=== PATIENT | female | born 1990 | race Caucasian/White ===

== ENCOUNTER 2016-07-11 18:54 | Emergency (ER) | payer BC, OTHER ==
[2016-07-11 19:06] VITALS: BP 137/80; PULSE 80; RESP 20; TEMP 98.6
--- NOTE | 2016-07-11 20:03 | XR ---
EXAMINATION TYPE: XR chest 2V DATE OF EXAM: 07/11/2016 7:58 PM COMPARISON: Prior chest x-ray January HISTORY: Chest pain TECHNIQUE: Frontal and lateral views of the chest are obtained. FINDINGS: There is no focal air space opacity, pleural effusion, or pneumothorax seen. The cardiac silhouette size is within normal limits. The osseous structures are intact. IMPRESSION: No acute cardiopulmonary process.
--- NOTE | 2016-07-11 20:04 | ED ---
Chest Pain HPI - General Chief Complaint: Chest Pain Stated Complaint: chest pain Time Seen by Provider: 07/11/16 19:22 Source: patient, RN notes reviewed, old records reviewed Mode of arrival: wheelchair Limitations: no limitations - History of Present Illness Initial Comments: This is a 25-year-old female with chief complaint of right-sided chest pain. Patient reports that she had an episode chest pain yesterday at work and admits to subsided after she took an aspirin. Patient states that this occurred again today while at work. She reports that the pain is worse with pressure over her chest. She denies any shortness breath, dizziness or nausea or vomiting. She denies any diaphoresis. She states that she's had this happened before and was diagnosed with costochondritis. Patient reports the pain is worse when she tries to take a deep breath and feels or muscle stretch over her chest. She denies any specific injury. 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 - Related Data Previous Rx's Medication Instructions Recorded Ibuprofen [Motrin] 800 mg PO Q6HR PRN #20 tab 07/11/16 Allergies Allergy/AdvReac Type Severity Reaction Status Date / Time No Known Allergies Allergy Verified 07/11/16 19:24 Review of Systems ROS Statement: Those systems with pertinent positive or pertinent negative responses have been documented in the HPI. ROS Other: All systems not noted in ROS Statement are negative. EKG Findings - EKG Comments: EKG Findings:: EKG shows normal sinus rhythm. Ventricular rate 69 bpm. NC interval 170 ms. QRS duration 80 ms. QT QTc is 4/10 at 450 ms. No evidence of ST elevation or T-wave inversion. Past Medical History Past Medical History: No Reported History History of Any Multi-Drug Resistant Organisms: None Reported Past Surgical History: Orthopedic Surgery Additional Past Surgical History / Comment(s): rt knee orthoscopic Past Psychological History: No Psychological Hx Reported Smoking Status: Current every day smoker Past Alcohol Use History: Occasional Past Drug Use History: Marijuana General Exam - General Exam Comments Initial Comments: This is a well-appearing 25-year-old female. No acute distress. Limitations: no limitations General appearance: alert, in no apparent distress Head exam: Present: atraumatic, normocephalic, normal inspection Eye exam: Present: normal appearance, PERRL, EOMI. Absent: scleral icterus, conjunctival injection, periorbital swelling ENT exam: Present: normal exam, mucous membranes moist Neck exam: Present: normal inspection. Absent: tenderness, meningismus, lymphadenopathy Respiratory exam: Present: normal lung sounds bilaterally. Absent: respiratory distress, wheezes, rales, rhonchi, stridor Cardiovascular Exam: Present: regular rate, normal rhythm, normal heart sounds, other (Patient is tender to palpation over the right breast and pectoralis muscle.). Absent: systolic murmur, diastolic murmur, rubs, gallop, clicks GI/Abdominal exam: Present: soft, normal bowel sounds. Absent: distended, tenderness, guarding, rebound, rigid Extremities exam: Present: normal inspection, full ROM, normal capillary refill. Absent: tenderness, pedal edema, joint swelling, calf tenderness Back exam: Present: normal inspection Neurological exam: Present: alert, oriented X3, CN II-XII intact Psychiatric exam: Present: normal affect, normal mood Skin exam: Present: warm, dry, intact, normal color. Absent: rash Course Vital Signs 07/11/16 19:04 Temperature 98.6 F Pulse Rate 80 Respiratory 20 Rate Blood Pressure 137/80 O2 Sat by Pulse 98 Oximetry Chest Pain MDM - MDM This is a 25-year-old female complaining of 1 day of chest pain. Patient is tender to the right side of the chest to palpation. Likely costochondritis or muscle strain. Patient's chest x-ray and EKG reviewed. EKG as needed for any acute process. Chest x-ray also was negative. Patient will be discharged home with a template injuries. Discussed close follow-up with her primary care provider. Patient chest x-rays negative for any acute process. Patient is unlikely to have any cardiopulmonary reason for chest pain. Patient has no fever or chills. No cough, lungs are clear. No murmurs. Patient is tender on thechest wall. Will be discharged with antiinflammatory. Return paramteres discussed, and patient will follow up with PCP. Disposition Clinical Impression: Right-sided chest wall pain Disposition: HOME SELF-CARE Condition: Good Instructions: Costochondritis (ED) Prescriptions: Ibuprofen [Motrin] 800 mg PO Q6HR PRN #20 tab PRN Reason: Pain Referrals: Rossi Campos MD [STAFF PHYSICIAN] - 1-2 days Time of Disposition: :03
== END 2016-07-11 20:11 | disposition home or self-care (01) ==
LOC: EC 18:54
DX: R07.89 Other chest pain (principal); F17.200 Nicotine dependence, unspecified, uncomplicated
CPT/HCPCS: 71020; 93005; 99285

== ENCOUNTER → 2017-06-09 | Outpatient (CLI) | payer BC, OTHER | END | disposition home or self-care (01) | LOC: LABWHC1 10:49 | PROVIDERS: ATTEND Family Medicine | DX: J11.1 Influenza due to unidentified influenza virus with other respiratory manifestations (principal) | CPT/HCPCS: 87502 ==

== ENCOUNTER 2017-10-21 21:47 | Emergency (ER) | payer OTHER ==
[2017-10-21 21:57] VITALS: PULSE 86; RESP 18
[2017-10-21] MEDS ORDERED: KETOROLAC 30 MG/ML 1 ML VIAL IM STA (22:24)
[2017-10-21] MEDS ORDERED: ORPHENADRINE 30 MG/ML 2 ML VIAL IM STA (22:24)
--- NOTE | 2017-10-21 22:51 | ED ---
General Adult HPI - General Chief complaint: Back Pain/Injury Stated complaint: Back Pain Time Seen by Provider: 10/21/17 22:01 Source: patient, family, RN notes reviewed Mode of arrival: ambulatory Limitations: no limitations - History of Present Illness Initial comments: 26-year-old female presents to the emergency department for a chief complaint of right sided back pain 4 days. Patient states she lifted up a 5 gallon bucket at work and felt a strain on the right side of her back. Patient states that since that time she has had a spasm in her right lower back as well as a shooting pain down her right leg to her right knee. Patient states pain is worsened with movement. Patient denies any bladder or bowel changes. Patient denies any saddle anesthesia. Patient denies any weakness in the lower extremities. Patient denies any history of cancer, IV drug abuse, fevers, chronic steroid use. Patient has no other complaints at this time including shortness of breath, chest pain, abdominal pain, nausea or vomiting, headache, or visual changes. - Related Data Previous Rx's Medication Instructions Recorded Ibuprofen [Motrin] 800 mg PO Q6HR PRN #20 tab 07/11/16 Cyclobenzaprine [Flexeril] 5 mg PO TID #12 tablet 10/21/17 Ibuprofen [Motrin] 600 mg PO Q8HR PRN #20 tab 10/21/17 predniSONE 50 mg PO DAILY #5 tablet 10/21/17 Allergies Allergy/AdvReac Type Severity Reaction Status Date / Time No Known Allergies Allergy Verified 10/21/17 21:57 Review of Systems ROS Statement: Those systems with pertinent positive or pertinent negative responses have been documented in the HPI. ROS Other: All systems not noted in ROS Statement are negative. Past Medical History Past Medical History: No Reported History Additional Past Medical History / Comment(s): back pain History of Any Multi-Drug Resistant Organisms: None Reported Past Surgical History: Orthopedic Surgery Additional Past Surgical History / Comment(s): rt knee orthoscopic Past Psychological History: No Psychological Hx Reported Smoking Status: Never smoker Past Alcohol Use History: Occasional Past Drug Use History: Marijuana General Exam Limitations: no limitations General appearance: alert, in no apparent distress Head exam: Present: atraumatic, normocephalic, normal inspection Eye exam: Present: normal appearance, PERRL, EOMI. Absent: scleral icterus, conjunctival injection, nystagmus, periorbital swelling, periorbital tenderness ENT exam: Present: normal exam, mucous membranes moist Neck exam: Present: normal inspection, full ROM. Absent: tenderness, meningismus, lymphadenopathy Respiratory exam: Present: normal lung sounds bilaterally. Absent: respiratory distress, wheezes, rales, rhonchi, stridor Cardiovascular Exam: Present: regular rate, normal rhythm, normal heart sounds. Absent: systolic murmur, diastolic murmur, rubs, gallop, clicks Extremities exam: Present: full ROM (Patient has full range motion of the right hip knee ankle), tenderness (Patient does have very mild tenderness to the right low back and sciatic notch), normal capillary refill (Capillary refill less than 2 seconds and pedal pulse 2+ in the right lower extremity), other ( Sensation intact in the right lower extremity). Absent: pedal edema, joint swelling, calf tenderness (No tenderness in the calf, negative Homans sign) Back exam: Present: paraspinal tenderness (Patient has mild right sided low back tenderness in sciatic notch tenderness). Absent: vertebral tenderness (No vertebral tenderness noted) Neurological exam: Present: alert, oriented X3, CN II-XII intact, reflexes normal (Reflexes patellar 2+. No hyperreflexia, no myoclonus) Psychiatric exam: Present: normal affect, normal mood Course Vital Signs 10/21/17 21:55 Temperature 98.7 F Pulse Rate 86 Respiratory 18 Rate Blood Pressure 136/86 O2 Sat by Pulse 96 Oximetry Medical Decision Making - Medical Decision Making 26-year-old female presents to the emergency department for a chief complaint of sciatic pain 4 days. Patient was lifting something at work when she felt a spasm on the right side of her back. Since that time she has noticed a sharp shooting pain down the right leg to the right knee. Patient denies weakness. Patient denies any red flag symptoms which were documented in HPI. On exam patient has some mild right low back tenderness as well as right sciatic notch tenderness. No midline tenderness. No other injuries. Neurovascular intact in the right lower extremity At this time x-ray is not warranted and will likely not show any abnormalities. Patient will be treated with Toradol and Norflex. She will be written a prescription for steroids. Patient denies any chance of . Patient will follow up with primary care in 1-2 days. She will be given a note from work for tomorrow as requested. Disposition Clinical Impression: Sciatica Disposition: HOME SELF-CARE Condition: Good Instructions: Sciatica (ED) Additional Instructions: Please take Motrin and Flexeril for pain. Do not drive or operate machinery while taking Flexeril. Please take steroid as directed. Return to the emergency department if you have any worsening symptoms such as increased pain, bladder or bowel changes, or groin or buttock numbness. Prescriptions: Cyclobenzaprine [Flexeril] 5 mg PO TID #12 tablet Ibuprofen [Motrin] 600 mg PO Q8HR PRN #20 tab PRN Reason: Pain predniSONE 50 mg PO DAILY #5 tablet Is patient prescribed a controlled substance at d/c from ED?: No Referrals: Pedrito Hernandez MD [STAFF PHYSICIAN] - 1-2 days Time of Disposition: 22:49
[2017-10-21 23:30] VITALS: BP 133/80; TEMP 98.5
== END 2017-10-21 23:30 | disposition home or self-care (01) ==
LOC: EC 21:47
DX: M54.41 Lumbago with sciatica, right side (principal); X50.0XXA Overexertion from strenuous movement or load, initial encounter; Y92.69 Other specified industrial and construction area as the place of occurrence of the external cause
CPT/HCPCS: 99283; 96372 ×2; J2360; J1885

== ENCOUNTER → 2019-10-08 | Outpatient (CLI) | payer BC ==
[2019-10-08 11:50] LABS: HCT 43.5 % (34.0-46.0); MCH 28.5 pg (25.0-35.0); MCHC 32.2 g/dL (31.0-37.0); MCV 88.6 fL (80.0-100.0); Mean Platelet Volume 7.4; Platelet Count 393 k/uL (150-450); RBC 4.91 m/uL (3.80-5.40); RDW 12.8 % (11.5-15.5); WBC 12.5 k/uL (3.8-10.6)
[2019-10-08 17:18] LABS: African American GFR (CKD) 116.3 (60.0-200.0); Albumin 4.5 g/dL (3.80-4.90); Albumin/Globulin Ratio 1.61 (1.60-3.17); Anion Gap 7.9 mmol/L (4.00-12.00); BUN/Creat Ratio 13.75 Ratio (12.00-20.00); Calcium 9.7 mg/dL (8.7-10.3); Carbon Dioxide 24.1 mmol/L (21.6-31.8); Chol/HDL Ratio 5.17; Globulin 2.8 g/dL (1.6-3.3); LDL Cholesterol,Calculated 112.6 mg/dL (0.0-131.0); Non-African American GFR(CKD) 100.3 (60.0-200.0); Potassium 4.5 mmol/L (3.5-5.5); Total Bilirubin 0.4 mg/dL (0.2-1.2); Total Protein 7.3 g/dL (6.2-8.2); VLDL Calculation 33.4 mg/dL (5.00-40.00)
[2019-10-08 17:26] LABS: Ferritin 40.6 ng/mL (10.0-291.0); Luteinizing Hormone 11.9 mIU/mL
[2019-10-08 17:27] LABS: Follicle Stimulating Hormone 4.9 mIU/mL
== END ==
LOC: LABWHC1 08:13
PROVIDERS: ATTEND Family Medicine
DX: E66.01 Morbid (severe) obesity due to excess calories (principal); N92.6 Irregular menstruation, unspecified; E55.9 Vitamin D deficiency, unspecified
CPT/HCPCS: 36415; 80053; 80061; 82306; 82627; 82670; 82728; 83001; 83002; 84403; 84443; 85027

== ENCOUNTER → 2020-06-20 | Outpatient (CLI) | payer BC ==
--- NOTE | 2020-06-20 12:57 | XR ---
EXAMINATION TYPE: XR chest 2V DATE OF EXAM: 06/20/2020 COMPARISON: 07/11/2016 TECHNIQUE: PA and lateral views submitted. HISTORY: Elevated white count FINDINGS: The lungs are clear and there is no pneumothorax, pleural effusion, or focal pneumonia. Heart size normal. No overt failure. IMPRESSION: 1. No acute process.
[2020-06-20 13:28] LABS: Basophils # (A) 0.1 k/uL (0-0.2); Basophils % (A) 1 %; Eosinophils # (A) 0.3 k/uL (0-0.7); Eosinophils % (A) 2 %; HCT 42.1 % (34.0-46.0); HGB 14.3 gm/dL (11.4-16.0); Lymphocytes # (A) 3.1 k/uL (1.0-4.8); Lymphocytes % (A) 22 %; MCH 29.5 pg (25.0-35.0); MCHC 33.9 g/dL (31.0-37.0); MCV 86.8 fL (80.0-100.0); Mean Platelet Volume 7.1; Monocytes # (A) 0.5 k/uL (0-1.0); Monocytes % (A) 4 %; Neutrophils # (A) 10.1 k/uL (1.3-7.7); Neutrophils % (A) 71 %; Platelet Count 419 k/uL (150-450); RBC 4.85 m/uL (3.80-5.40); WBC 14.2 k/uL (3.8-10.6)
== END | disposition home or self-care (01) ==
LOC: RADXRMAIN 12:22
PROVIDERS: ATTEND Family Medicine
DX: D72.829 Elevated white blood cell count, unspecified (principal)
CPT/HCPCS: 71046; 85025

== ENCOUNTER → 2020-11-07 | Outpatient (CLI) | payer BC ==
[2020-11-07 11:08] LABS: HCT 42.4 % (37.2-46.3); HGB 12.9 g/dL (12.0-15.0); MCH 27.3 pg (27.0-32.0); MCHC 30.4 g/dL (32.0-37.0); MCV 89.6 fL (80.0-97.0); Mean Platelet Volume 9.8 fL (9.5-12.2); Platelet Count 402 X 10*3/uL (140-440); RBC 4.73 X 10*6/uL (4.10-5.20); RDW 13.1 % (11.5-14.5); WBC 13.98 X 10*3/uL (4.50-10.00)
[2020-11-07 18:38] LABS: Hemoglobin A1C 5.9 % (4.0-6.0)
[2020-11-08 04:29] LABS: African American GFR (CKD) 115.5 (60.0-200.0); Albumin 4.1 g/dL (3.80-4.90); Albumin/Globulin Ratio 1.46 (1.60-3.17); Anion Gap 16.9 mmol/L (4.00-12.00); BUN/Creat Ratio 17.5 Ratio (12.00-20.00); Calcium 9.2 mg/dL (8.7-10.3); Carbon Dioxide 18.1 mmol/L (21.6-31.8); Chol/HDL Ratio 5.21; Globulin 2.8 g/dL (1.6-3.3); LDL Cholesterol,Calculated 120.6 mg/dL (0.0-131.0); Magnesium 1.6 mg/dL (1.5-2.4); Non-African American GFR(CKD) 99.6 (60.0-200.0); Potassium 4.7 mmol/L (3.5-5.5); Total Bilirubin 0.4 mg/dL (0.2-1.2); Total Protein 6.9 g/dL (6.2-8.2); VLDL Calculation 22.4 mg/dL (5.00-40.00)
== END | disposition home or self-care (01) ==
LOC: LABWHC1 07:52
PROVIDERS: ATTEND Family Medicine
DX: E03.9 Hypothyroidism, unspecified (principal); E04.2 Nontoxic multinodular goiter; E28.2 Polycystic ovarian syndrome
CPT/HCPCS: 36415; 80053; 80061; 82533; 83036; 83735; 84443; 84481; 85027

== ENCOUNTER → 2021-06-18 | Outpatient (CLI) | payer BC ==
[2021-06-18 16:12] VITALS: BP 138/88; PULSE 108; TEMP 98.1; BMI 51.2
--- NOTE | 2021-06-18 16:27 | P.HPBAR ---
Bariatric H&P - History & Physicial H&P Date: 06/18/21 History & Physicial: Visit/CC: initial clinic visit Patient initial contact: Initial weight: Initial weight in pounds: Height: 6 ft Initial BMI: Last weight: Current weight: 171.458 kg Current weight in pounds: 378.00 Current BMI: 51.2 Fleming body weight (based on NIH guidelines): 72.575 kg Excess body weight loss: The patient is a 30 year-old F who presents for Bariatric Assessment. Patient presents today to discuss bariatric surgical options. Patient is interested in sleeve gastrectomy. Current BMI 51. She presents to the office today with her father. Patient has medical history consisting of PCIOL OS, depression and anxiety, mild heartburn and knee pain. Patient states she was told in the past she has a chronically elevated white blood cell count she was actually on steroids for a while. She had a hematology evaluation sounds like it did not lead to any further workup. No abdominal surgeries in the past. No history of DVT or dysphagia. Does smoke occasional cigarettes. Review of Systems The patient denies any acute changes in vision or hearing, no dysphagia or odynophagia, no chest pain or shortness of breath, no dysuria or hematuria, no headache, no runny nose, no rectal bleeding or melena, no unexplained weight loss Past Medical History Past Medical History: No Reported History Additional Past Medical History / Comment(s): back pain History of Any Multi-Drug Resistant Organisms: None Reported Past Surgical History: Orthopedic Surgery Additional Past Surgical History / Comment(s): rt knee orthoscopic Smoking Status: Current some day smoker Surgical - Exam Vital Signs Temp Pulse BP 98.1 F 108 H 138/88 06/18/21 16:10 06/18/21 16:10 06/18/21 16:10 Physical exam: General: Well-developed, well-nourished HEENT: Normocephalic, sclerae nonicteric Abdomen: Nontender, nondistended Extremities: No edema Neuro: Alert and oriented Bariatric Assessment & Plan (1) Morbid obesity with BMI of 50.0-59.9, adult Narrative/Plan: 30-year-old female with morbid obesity and associated comorbidities. Patient's BMI 51. Bariatric surgical options and their associated risks and benefits dis cussed in detail with the patient. Patient remains interested in sleeve gastrectomy at this time. Patient will require preoperative EGD. Unclear at this time whether she requires supervised weight loss or not. This will be clarified. Tentatively plan EGD in the next few months. Status: Acute Bariatric Checklist Checklist: Plan: Checklist: EGD: 1. Hiatal hernia: 2. H. Pylori: HgbA1c: Vitamin D: Smoking: Never smoker Primary care physician referral: dr jeffers Psychiatry clearance: Cardiology clearance: Sleep study: Diet journal: VTE risk score: VTE risk level: Rehab needs at discharge:
== END ==
LOC: BARWHC3 15:21
PROVIDERS: ATTEND Surgery
DX: E66.01 Morbid (severe) obesity due to excess calories (principal); Z68.43 Body mass index [BMI] 50.0-59.9, adult; F17.210 Nicotine dependence, cigarettes, uncomplicated
CPT/HCPCS: 99211

== ENCOUNTER 2021-07-28 08:44 | Day surgery (SDC) | payer BC ==
[2021-07-24 11:12] VITALS: BMI 36.6
[~2021-07-28 08:44] MED LIST: LACTATED RINGERS 1,000 ML IV SCH; LIDOCAINE 1% (10MG/ML) FOR IV START INTRADERMA PRN
[2021-07-28] MEDS ORDERED: MIDAZOLAM 2 MG/2 ML VIAL ONE (09:29)
[2021-07-28] MEDS ORDERED: LIDOCAINE 2% INJ 20 MG/ML (2 ML VIAL) ONE (09:29)
[2021-07-28] MEDS ORDERED: PROPOFOL 10 MG/ML 20 ML VIAL IV ONE (09:29)
[2021-07-28] MEDS ORDERED: fentaNYL (PF) 50 MCG/ML 2 ML AMP ONE (09:29)
[2021-07-28 09:32] VITALS: TEMP 98.1
--- NOTE | 2021-07-28 09:33 | P.GSHP ---
History of Present Illness H&P Date: 07/28/21 Chief Complaint: GERD, presurgical 30-year-old female here today for upper endoscopy. Patient be evaluated for sleep gastrectomy. Mild reflux at times. No dysphagia. Past Medical History Past Medical History: No Reported History, Thyroid Disorder Additional Past Medical History / Comment(s): back pain. PCOS History of Any Multi-Drug Resistant Organisms: None Reported Past Surgical History: Orthopedic Surgery, Tonsillectomy Additional Past Surgical History / Comment(s): rt knee -ARTHROSCOPIC Past Anesthesia/Blood Transfusion Reactions: Postoperative Nausea & Vomiting (PONV) Smoking Status: Current some day smoker - Past Family History Mother Family Medical History: No Reported History Medications and Allergies Home Medications Medication Instructions Recorded Confirmed Type Escitalopram [Lexapro] 20 mg PO DAILY 06/24/21 07/24/21 History Levothyroxine Sodium 25 mcg PO DAILY 06/24/21 07/24/21 History Magnesium 200 mg PO DAILY 06/24/21 07/24/21 History metFORMIN HCL 500 mg PO TID 06/24/21 07/24/21 History traZODone HCL 50 mg PO HS 07/24/21 07/24/21 History Allergies Allergy/AdvReac Type Severity Reaction Status Date / Time No Known Allergies Allergy Verified 07/28/21 09:16 Surgical - Exam Vital Signs Temp Pulse Resp BP Pulse Ox 98.1 F 89 16 142/75 96 07/28/21 09:20 07/28/21 09:20 07/28/21 09:20 07/28/21 09:20 07/28/21 09:20 Physical exam: General: Well-developed, well-nourished HEENT: Normocephalic, sclerae nonicteric Abdomen: Nontender, nondistended Extremities: No edema Neuro: Alert and oriented Assessment and Plan (1) GERD (gastroesophageal reflux disease) Narrative/Plan: Will proceed with upper endoscopy at this time. Current Visit: Yes Status: Acute Code(s): K21.9 - GASTRO-ESOPHAGEAL REFLUX DISEASE WITHOUT ESOPHAGITIS SNOMED Code(s): 273166861
--- NOTE | 2021-07-28 09:39 | P.PCN ---
Date of Procedure: 07/28/21 Procedure(s) Performed: Preoperative Dx: GERD, presurgical Postoperative Dx: Mild gastritis Procedure: EGD with Bx Anesthesia: Sedation Endoscopist: Dr. Garrido Specimens: Antrum Endoscopic Procedure: The patient was on the endoscopy table in the left decubitus position. The Olympus gastroscope was inserted into the oropharynx and passed under direct visualization to the region of the third portion of the duodenum. From that point the scope was slowly withdrawn inspecting all surfaces carefully. There were no neoplastic inflammatory or polypoid lesions throughout the duodenum. The pylorus was widely patent. The stomach was carefully inspected. There was mild gastritis present. A biopsy of the antrum took place to rule out H. pylori. Retroflexion revealed a normal hiatus. The esophagus was then carefully examined. There were no neoplastic inflammatory or polypoid lesions throughout the visualized esophagus. The patient was then taken to the recovery room in stable condition per anesthesia guidelines. Recommendations: Resume diet. Continue bariatric preoperative workup.
[2021-07-28 09:40] LABS: Glucose,Whole Blood 145 mg/dL (75-99)
[2021-07-28 10:01] VITALS: BP 138/87; PULSE 83; RESP 18
== END 2021-07-28 10:17 | disposition home or self-care (01) ==
LOC: ORWHC2ENDO 08:44
PROVIDERS: ATTEND Surgery
DX: K29.50 Unspecified chronic gastritis without bleeding (principal); K21.00 Gastro-esophageal reflux disease with esophagitis, without bleeding; K21.9 Gastro-esophageal reflux disease without esophagitis; F17.200 Nicotine dependence, unspecified, uncomplicated; Z79.84 Long term (current) use of oral hypoglycemic drugs
CPT/HCPCS: 43239; 81025; 88305; J2250; J3010; J2704; J2001

== ENCOUNTER → 2021-09-08 | Outpatient (CLI) | payer BC ==
[2021-09-08 13:56] VITALS: BP 154/83; PULSE 91; RESP 16; TEMP 98.3; BMI 49.7
--- NOTE | 2021-09-08 15:50 | P.BASOAP ---
Subjective Progress Note Date: 09/08/21 Principal diagnosis: Morbid obesity Patient returns for recheck. Last seen 07/28. Underwent EGD at that time. Mild gastritis seen. Biopsies negative for H. pylori. No change in her history since that time. No tobacco use. Objective - Vital Signs Vital signs: Vital Signs Temp 98.3 F 09/08/21 13:51 Pulse 91 09/08/21 13:51 Resp 16 09/08/21 13:51 BP 154/83 09/08/21 13:51 Pulse Ox FiO2 Intake & Output 09/07/21 09/08/21 09/08/21 18:59 06:59 18:59 Weight 166.468 kg - Exam Abdomen: Soft, nontender, nondistended Assessment/Plan (1) Morbid obesity with BMI of 50.0-59.9, adult Narrative/Plan: 30-year-old female with morbid obesity and associated comorbidities. The patient would like to proceed with sleeve gastrectomy. Surgical consent form with associated risks and benefits reviewed in detail at this time. We'll schedule for laparoscopic da Cielo assisted sleeve gastrectomy, possible open. The risks of bleeding, infection, stenosis, stricture, leak, abscess, fistula formation, peritonitis, poor weight loss, reflux, vomiting, conversion to an open procedure, aborting sleeve gastrectomy, [place], PE, DVT, and were discussed. The patient understands and wishes to proceed. Plan: Date: 09/08/21 Initial Weight: 166.468 kg Initial BMI: 49.7 Current Weight: 166.468 kg Current BMI: 49.7 Type of Surgery: Total Volume in Band: Previous Volume: Volume Removed: Volume Added: Band Size:
== END ==
LOC: BARWHC3 13:21
PROVIDERS: ATTEND Surgery
DX: E66.01 Morbid (severe) obesity due to excess calories (principal); Z68.42 Body mass index [BMI] 45.0-49.9, adult
CPT/HCPCS: 99211

== ENCOUNTER → 2021-09-18 | Outpatient (CLI) | payer BC ==
[2021-09-18 14:17] LABS: HCT 41.1 % (37.2-46.3); HGB 12.6 g/dL (12.0-15.0); MCHC 30.7 g/dL (32.0-37.0); Mean Platelet Volume 9.8 fL (9.5-12.2); NRBC Per 100 WBC 0 /100 WBCS (0.0-0.0); Platelet Count 414 X 10*3/uL (140-440); RBC 4.67 X 10*6/uL (4.10-5.20); RDW 13.1 % (11.5-14.5); WBC 9.98 X 10*3/uL (4.50-10.00)
[2021-09-18 15:00] LABS: African American GFR (CKD) 115.7 (60.0-200.0); Albumin/Globulin Ratio 1.46 (1.60-3.17); BUN/Creat Ratio 11.52 Ratio (12.00-20.00); Blood Urea Nitrogen 9.2 mg/dL (9.0-27.0); Calcium 9.1 mg/dL (8.7-10.3); Carbon Dioxide 25.6 mmol/L (20.0-27.5); Globulin 2.7 g/dL (1.6-3.3); Non-African American GFR(CKD) 99.8 (60.0-200.0); Potassium 4.6 mmol/L (3.5-5.5); Total Bilirubin 0.4 mg/dL (0.30-1.20); Total Protein 6.7 g/dL (6.2-8.2)
== END ==
LOC: LABWHC1 09:46
PROVIDERS: ATTEND Surgery
DX: E66.01 Morbid (severe) obesity due to excess calories (principal); Z71.51 Drug abuse counseling and surveillance of drug abuser; K90.89 Other intestinal malabsorption; E55.9 Vitamin D deficiency, unspecified
CPT/HCPCS: 36415; 80053; 80323; 82306; 82607; 82746; 83036; 83540; 84425; 85027

== ENCOUNTER → 2021-09-21 | Outpatient (CLI) | payer BC ==
[2021-09-21 11:00] VITALS: BMI 49.5
== END ==
LOC: BARWHC3 08:41
PROVIDERS: ATTEND Surgery
DX: E66.01 Morbid (severe) obesity due to excess calories (principal); Z71.3 Dietary counseling and surveillance; Z68.42 Body mass index [BMI] 45.0-49.9, adult
CPT/HCPCS: 97804

== ENCOUNTER → 2021-11-18 | Outpatient (CLI) | payer BC ==
[2021-11-18 17:57] LABS: Basophils # (A) 0.07 X 10*3/uL (0.00-0.10); Basophils % (A) 0.5 %; Eosinophils # (A) 0.15 X 10*3/uL (0.04-0.35); Eosinophils % (A) 1.1 %; HCT 41.4 % (37.2-46.3); HGB 13.5 g/dL (12.0-15.0); Immature Grans, Automated 0.6 %; Lymphocytes % (A) 24.3 %; MCH 28.2 pg (27.0-32.0); MCHC 32.6 g/dL (32.0-37.0); MCV 86.6 fL (80.0-97.0); Mean Platelet Volume 9.8 fL (9.5-12.2); Monocytes # (A) 0.81 X 10*3/uL (0.20-1.00); NRBC Per 100 WBC 0 /100 WBCS (0.0-0.0); Neutrophils # (A) 9.15 X 10*3/uL (1.80-7.70); Neutrophils % (A) 67.5 %; Platelet Count 453 X 10*3/uL (140-440); RBC 4.78 X 10*6/uL (4.10-5.20); RDW 13.2 % (11.5-14.5); WBC 13.56 X 10*3/uL (4.50-10.00)
[2021-11-18 19:53] LABS: African American GFR (CKD) 135.2 (60.0-200.0); Albumin 4.4 g/dL (3.8-4.9); Albumin/Globulin Ratio 1.43 (1.60-3.17); Anion Gap 13.2 mmol/L (10.00-18.00); BUN/Creat Ratio 21.79 Ratio (12.00-20.00); Blood Urea Nitrogen 15.1 mg/dL (9.0-27.0); Calcium 9.6 mg/dL (8.7-10.3); Carbon Dioxide 23.4 mmol/L (20.0-27.5); Non-African American GFR(CKD) 116.7 (60.0-200.0); Potassium 4.7 mmol/L (3.5-5.5); Total Bilirubin 0.3 mg/dL (0.30-1.20); Total Protein 7.4 g/dL (6.2-8.2)
== END | disposition home or self-care (01) ==
LOC: LABWHC1 12:12
PROVIDERS: ATTEND Surgery
DX: Z01.812 Encounter for preprocedural laboratory examination (principal)
CPT/HCPCS: 80053; 85025

== ENCOUNTER 2021-11-23 07:04 | Observation (INO) | payer BC ==
[~2021-11-23 07:04] MED LIST changes: +ACETAMINOPHEN TAB 500 MG TAB PO PRN; +ENOXAPARIN 40 MG/0.4 ML SYRINGE SQ PRN; -LACTATED RINGERS 1,000 ML IV SCH; -LIDOCAINE 1% (10MG/ML) FOR IV START INTRADERMA PRN; +ONDANSETRON 4 MG/2 ML VIAL IVP PRN; +ceFAZolin 3 GM in SODIUM CHLORIDE 0.9% 100 ML IVPB PRN
[2021-11-23] MEDS ORDERED: MIDAZOLAM 2 MG/2 ML VIAL IV PRN (07:14)
[2021-11-23] MEDS ORDERED: LIDOCAINE 1% (10MG/ML) FOR IV START INTRADERMA PRN (07:14)
[2021-11-23] MEDS ORDERED: DEXAMETHASONE SOD PHOSPHATE 4 MG/ML 1 ML VIAL IV ONE (07:14)
[2021-11-23] MEDS ORDERED: ONDANSETRON 4 MG/2 ML VIAL IVP ONE ×2 (07:14→11:34)
[2021-11-23] MEDS: LACTATED RINGERS 1,000 ML IV SCH (07:54)
[2021-11-23 07:57] LABS: Glucose,Whole Blood 114 mg/dL (70-110)
--- NOTE | 2021-11-23 08:34 | P.GSHP ---
History of Present Illness H&P Date: 11/23/21 Chief Complaint: Morbid obesity 3-year-old female seen initially in the bariatric clinic in June. Patient with complaints of morbid obesity. Comorbidities including PCO S, depression, heartburn, and chronic knee pain. Patient here today for elective laparoscopic da Cielo-assisted sleeve gastrectomy. Patient has quit smoking altogether. Recent EGD showed mild gastritis. Past Medical History Past Medical History: Thyroid Disorder Additional Past Medical History / Comment(s): back pain. PCOS History of Any Multi-Drug Resistant Organisms: None Reported Past Surgical History: Orthopedic Surgery, Tonsillectomy Additional Past Surgical History / Comment(s): rt knee -ARTHROSCOPIC. EGD Past Anesthesia/Blood Transfusion Reactions: Postoperative Nausea & Vomiting (PONV) Smoking Status: Former smoker - Past Family History Mother Family Medical History: No Reported History Medications and Allergies Home Medications Medication Instructions Recorded Confirmed Type Escitalopram [Lexapro] 20 mg PO DAILY 06/24/21 11/23/21 History Levothyroxine Sodium 25 mcg PO DAILY 06/24/21 11/23/21 History metFORMIN HCL 500 mg PO TID 06/24/21 11/23/21 History traZODone HCL 50 mg PO HS 07/24/21 11/23/21 History Allergies Allergy/AdvReac Type Severity Reaction Status Date / Time No Known Allergies Allergy Verified 11/23/21 07:36 Surgical - Exam Vital Signs Temp Pulse Resp BP Pulse Ox 97.0 F L 75 14 122/66 94 L 11/23/21 07:40 11/23/21 07:40 11/23/21 07:40 11/23/21 07:40 11/23/21 07:40 Physical exam: General: Well-developed, well-nourished HEENT: Normocephalic, sclerae nonicteric Abdomen: Nontender, nondistended Extremities: No edema Neuro: Alert and oriented Results - Labs Abnormal Lab Results - Last 24 Hours (Table) 11/23/21 Range/Units 07:53 POC Glucose (mg/dL) 114 H (70-110) mg/dL Assessment and Plan (1) Morbid obesity with BMI of 50.0-59.9, adult Narrative/Plan: 30-year-old female with morbid obesity. We'll proceed with laparoscopic da Cielo-assisted sleeve gastrectomy, possible open. The risks of bleeding, infection, stenosis, stricture, leak, abscess, fistula formation, peritonitis, poor weight loss, reflux, vomiting, conversion to an open procedure, aborting sleeve gastrectomy, [place], PE, DVT, and were discussed. The patient understands and wishes to proceed. Current Visit: No Status: Acute Code(s): E66.01 - MORBID (SEVERE) OBESITY DUE TO EXCESS CALORIES; Z68.43 - BODY MASS INDEX [BMI] 50.0-59.9, ADULT SNOMED Code(s): 183309563
[2021-11-23] MEDS ORDERED: LIDOCAINE 2% INJ 20 MG/ML (2 ML VIAL) ONE (08:56)
[2021-11-23] MEDS ORDERED: ePHEDrine 50 MG/ML 1 ML VIAL ONE (08:56)
[2021-11-23] MEDS ORDERED: ROCURONIUM 10 MG/ML (5 ML VIAL) IV ONE (08:56)
[2021-11-23] MEDS ORDERED: SUCCINYLCHOLINE CHLORIDE 200 MG/10 ML VIAL IV ONE (08:56)
[2021-11-23] MEDS ORDERED: GLYCOPYRROLATE 0.2 MG/ML 2 ML VIAL ONE (08:56)
[2021-11-23] MEDS ORDERED: NEOSTIGMINE 1 MG/ML 10 ML VIAL ONE (08:56)
[2021-11-23] MEDS ORDERED: fentaNYL (PF) 50 MCG/ML 2 ML AMP ONE (08:56)
[2021-11-23] MEDS ORDERED: PROPOFOL 10 MG/ML 20 ML VIAL IV ONE (08:56)
[2021-11-23] MEDS ORDERED: diphenhydrAMINE 50 MG/ML 1 ML VIAL ONE (08:56)
[2021-11-23] MEDS ORDERED: MIDAZOLAM 2 MG/2 ML VIAL ONE (08:56)
[2021-11-23] MEDS ORDERED: KETAMINE 10 MG/ML 20 ML VIAL ONE (08:56)
[2021-11-23] MEDS ORDERED: ONDANSETRON 4 MG/2 ML VIAL ONE (08:56)
[2021-11-23] MEDS ORDERED: BUPIVACAIN-EPI 0.25%-1:200,000 30 ML VIAL SQ ONE ×2 (09:23→09:24)
[2021-11-23] MEDS ORDERED: LACTATED RINGERS 1,000 ML IV ONE ×2 (10:44→12:31)
--- NOTE | 2021-11-23 10:58 | P.OP ---
Date of Procedure: 11/23/21 Procedure(s) Performed: PREOPERATIVE DIAGNOSIS: Morbid obesity POSTOPERATIVE DIAGNOSIS: Same PROCEDURE: Da Cielo assisted laparoscopic sleeve gastrectomy SURGEON: Hema EBL: Minimal ANESTHESIA: General COMPLICATIONS: None OPERATIVE PROCEDURE: Patient was placed in the operating table in the supine position. The patient was then placed under general anesthesia at that time. The abdomen was prepped and draped in the usual sterile fashion. A 5 mm optical trocar was placed in the left upper quadrant 20 cm inferior to the xiphoid process. Insufflation took place up to 15 mmHg. No adhesions were seen. A 5 mm subxiphoid incision was made and the medium Emil retractor was used to elevate the left lobe of liver anteriorly. This was held in place using the fixed arm retractor. An additional 12 mm trocar was placed in the right paramedian location and 2 additional 8 mm trochars were placed in the left upper quadrant one medial and one lateral to the initially placed optical trocar. All of these trochars were placed along the same plane. The initial 5 was then switched to an 8 mm trocar. The robot was then docked appropriately. The 8 mm camera was placed in the left paramedian trocar site down viewing. A fenestrated bipolar was placed in arm 1, arm 3 had the vessel sealer, arm 4 had the small grasper retractor. The hiatus was inspected and there was no visible hiatal hernia. At that point I moved to the distal aspect of the greater curvature the stomach. The short gastric vasculature were divided using the vessel sealer. This dissection took place distally until we were 4 cm from the pylorus. The posterior adhesions were divided as well. The dissection then took place proximally along the stomach until the posterior short gastrics were divided and the fundus of the stomach was fully mobilized. Once the stomach was fully mobilized the blunt tipped 40-Canadian bougie dilator was advanced into the stomach and advanced all the way to the prepyloric location. The patient's stomach by palpation seemed to be of average thickness. No buttressing was utilized. Initial single firing of the stapler took place using a green load. The remaining loads were blue in color. The staple line was inspected. A few small areas of oozing along the staple line were controlled using the bipolar cautery. The stomach was then placed in the right upper quadrant after it was fully excised. The oral gastric tube was reinserted. The stomach was insufflated with approximately 100 mL of methylene blue. No evidence of leak or obstruction was seen. Tisseel fibrin glue was then used along the length of the staple line. The robot was then undocked. The da Cielo laparoscope was used and the stomach was removed from the 12 mm trocar site without difficulty. The fascia at the 12mm site was closed using [id number] 0 Vicryl sutures with the laparoscopic suture passer and Austen Andrew technique. The insufflation was evacuated. The skin at all 5 incisions were closed using 4-0 Monocryl sutures. Skin glue was then applied. DISPOSITION: Stable to recovery room
[2021-11-23] MEDS ORDERED: NALOXONE 0.4 MG/ML 1 ML VIAL IV PRN (10:59)
[2021-11-23] MEDS ORDERED: SIMETHICONE 40 MG/0.6 ML DROPS 2,000 MG/30 ML BOTTLE PO PRN (10:59)
[2021-11-23] MEDS ORDERED: HYOSCYAMINE ORAL DROPS 1.875 MG/15 ML BOTTLE PO PRN (10:59)
[2021-11-23] MEDS ORDERED: diphenhydrAMINE 50 MG/ML 1 ML VIAL IVP PRN (10:59)
[2021-11-23] MEDS: HYDROmorphone 0.5 MG/0.5 ML SYRINGE IVP PRN ×3 (11:36→15:19)
[2021-11-23] MEDS: ALBUTEROL NEBULIZED 2.5 MG/3 ML INHALATION SCH ×2 (16:14→21:05)
[2021-11-23] MEDS: ACETAMINOPHEN IV (For NPO) 1,000 MG in EMPTY BAG 1 BAG IVPB SCH (17:14)
[2021-11-23] MEDS: 0.9% NACL WITH KCL 20 MEQ/L 1,000 ML IV SCH (17:14)
[2021-11-23] MEDS: ONDANSETRON 4 MG/2 ML VIAL IVP PRN (19:56)
[2021-11-23] MEDS: HYDROmorphone 1 MG/ML 1 ML SYRINGE IVP PRN (19:56)
[2021-11-23] MEDS: ENOXAPARIN 40 MG/0.4 ML SYRINGE SQ SCH (19:57)
[2021-11-24] MEDS: 0.9% NACL WITH KCL 20 MEQ/L 1,000 ML IV SCH ×4 (00:01→16:38)
[2021-11-24] MEDS: HYDROmorphone 1 MG/ML 1 ML SYRINGE IVP PRN ×2 (00:08→05:00)
[2021-11-24] MEDS: ACETAMINOPHEN IV (For NPO) 1,000 MG in EMPTY BAG 1 BAG IVPB SCH ×5 (00:08→23:58)
[2021-11-24] MEDS: ONDANSETRON 4 MG/2 ML VIAL IVP PRN (04:28)
[2021-11-24] MEDS: LACTATED RINGERS 1,000 ML IV SCH (07:10)
[2021-11-24] MEDS: ALBUTEROL NEBULIZED 2.5 MG/3 ML INHALATION SCH ×4 (08:02→19:51)
[2021-11-24] MEDS: ENOXAPARIN 40 MG/0.4 ML SYRINGE SQ SCH ×2 (10:32→21:15)
[2021-11-24] MEDS: KETOROLAC 15 MG/ML 1 ML VIAL IVP SCH ×4 (10:33→23:57)
[2021-11-24] MEDS: PANTOPRAZOLE 40 MG/10 ML VIAL IV SCH (10:34)
[2021-11-24] MEDS ORDERED: DEXTROSE 50% SYRINGE 50 ML IVP PRN ×2 (10:40)
[2021-11-24 10:44] LABS: African American GFR (CKD) 141.8 (60.0-200.0); Blood Urea Nitrogen 6.5 mg/dL (9.0-27.0); Calcium 8.5 mg/dL (8.7-10.3); Non-African American GFR(CKD) 122.3 (60.0-200.0); Phosphorus 3.1 mg/dL (2.4-5.1); Potassium 4.7 mmol/L (3.5-5.5)
[2021-11-24 11:04] LABS: Acanthocytes 2+; Basophils # (A) 0.04 X 10*3/uL (0.00-0.10); Basophils % (A) 0.2 %; Eosinophils # (A) 0.01 X 10*3/uL (0.04-0.35); Eosinophils % (A) 0.1 %; HGB 12.3 g/dL (12.0-15.0); Immature Grans, Automated 0.7 %; Lymphocytes # (A) 2.78 X 10*3/uL (0.90-5.00); Lymphocytes % (A) 16.5 %; MCH 28.3 pg (27.0-32.0); MCHC 32.4 g/dL (32.0-37.0); MCV 87.6 fL (80.0-97.0); Mean Platelet Volume 10.3 fL (9.5-12.2); Monocytes # (A) 0.93 X 10*3/uL (0.20-1.00); Monocytes % (A) 5.5 %; NRBC Per 100 WBC 0 /100 WBCS (0.0-0.0); Neutrophils # (A) 12.97 X 10*3/uL (1.80-7.70); Platelet Count 386 X 10*3/uL (140-440); RBC 4.34 X 10*6/uL (4.10-5.20); RDW 13.4 % (11.5-14.5); WBC 16.84 X 10*3/uL (4.50-10.00)
[2021-11-24 11:38] VITALS: BMI 49.0
[2021-11-24 11:56] LABS: Glucose,Whole Blood 110 mg/dL (70-110)
--- NOTE | 2021-11-24 12:05 | FL ---
EXAMINATION TYPE: FL UGI DATE OF EXAM: 11/24/2021 COMPARISON: NONE HISTORY: Status post gastric surgery. TECHNIQUE: Limited single contrast UGI study is performed. A total of 30 seconds of fluoroscopic kalina e was utilized during procedure and 9 images obtained. FINDINGS: The stomach demonstrate postsurgical morphology. No extravasation of contrast identified. No evidence of any mass or ulcer disease. The duodenal bulb, sweep, and proximal small bowel loops are unremarkable. IMPRESSION: Postsurgical changes without evidence of contrast extravasation.
[2021-11-24] MEDS: INSULIN ASPART (NovoLOG) 100 UNIT/ML VIAL SQ SCH ×3 (12:17→21:16)
--- NOTE | 2021-11-24 14:07 | P.PN ---
Subjective Progress Note Date: 11/24/21 CHIEF COMPLAINT: Morbid obesity HISTORY OF PRESENT ILLNESS: Patient is postop day #1 status post laparoscopic sleeve gastrectomy. Patient reports that her pain is controlled. She did have some nausea this morning she felt due to her being hungry. Improved with Zofran. She denies any flatus. She is urinating without difficulty. She has been up and ambulating. She did have a low-grade temp last night of 100.1. Currently afebrile. Upper GI postsurgical changes without evidence of contrast extravasation. PHYSICAL EXAM: VITAL SIGNS: Reviewed. GENERAL: Well-developed in no acute distress. HEENT: No sclera icterus. Extraocular movements grossly intact. Moist buccal mucosa. Head is atraumatic, normocephalic. ABDOMEN: Soft. Nondistended. Incision sites clean dry and intact NEUROLOGIC: Alert and oriented. Cranial nerves II through XII grossly intact. ASSESSMENT: 1. Morbid obesity status post laparoscopic sleeve gastrectomy PLAN: -Start bariatric clear liquid diet -Toradol added for pain control -Continue IV Tylenol -Continue IV fluids -Encouraged patient to ambulate -Encouraged patient to use incentive spirometer -DVT prophylaxis Lovenox and GI prophylaxis Protonix Physician Manufacturing Director note has been reviewed by physician. Signing provider agrees with the documented findings, assessment, and plan of care. I have personally seen and examined the patient, reviewed the HUMAN RESOURCE ANALYST /PAs history, exam and MDM and agree with the assessment and plan as written. Based on total visit time, I have performed more than 50% of the visit. As above: Patient doing fairly well today. Upper GI reviewed and no evidence of leak or obstruction is seen. She is tolerating clear liquids. Continue ambulation. Recheck labs tomorrow. Possible discharge tomorrow. Objective - Vital Signs Vital signs: Vital Signs Temp 97.8 F 11/24/21 13:50 Pulse 57 L 11/24/21 13:50 Resp 18 11/24/21 13:50 BP 130/81 11/24/21 13:50 Pulse Ox 96 11/24/21 13:50 FiO2 Intake & Output 11/23/21 11/24/21 11/24/21 18:59 06:59 18:59 Intake Total 2100 Output Total 10 Balance 2089 Weight 164.1 kg 164.1 kg Intake: IV 2100 Oral 0 Output: Estimated Blood Loss 10 Other: # Voids 1 1 - Labs CBC & Chem 7: 11/24/21 06:43 11/24/21 06:43 Labs: Abnormal Lab Results - Last 24 Hours (Table) 11/24/21 11/24/21 Range/Units 06:43 06:43 WBC 16.84 H (4.50-10.00) X 10*3/uL Immature Gran # 0.11 H (0.00-0.04) X 10*3/uL Neutrophils # 12.97 H (1.80-7.70) X 10*3/uL Eosinophils # 0.01 L (0.04-0.35) X 10*3/uL BUN 6.5 L (9.0-27.0) mg/dL Calcium 8.5 L (8.7-10.3) mg/dL
[2021-11-24 14:25] LABS: Magnesium 2.1 mg/dL (1.5-2.4)
[2021-11-24 16:32] LABS: Glucose,Whole Blood 93 mg/dL (70-110)
--- NOTE | 2021-11-24 18:34 | P.CONS ---
History of Present Illness - Reason for Consult Consult date: 11/24/21 Medical management hypothyroidism, DM,anxiety Requesting physician: Kwame Garrido - Chief Complaint Status post laparoscopic cholecystectomy gastrectomy - History of Present Illness This is a pleasant 30-year-old female with morbid obesity, BMI 49.1, status post laparoscopic sleeve gastrectomy, tolerating procedure well. Earlier this morning nauseated, receiving Zofran, resolved. Denies passing flatus. Denies sweats, chills, shortness of breath. Denies palpitations. Ambulating, tolerating exertion well. Denies lightheadedness, dizziness or focal deficits. T-max 100.1, WBC 16.8, renal function stable, A1c 7.3. Upper GI series pending. Review of Systems Constitutional: Denied any chills, sweats Cardio vascular: denied any chest pain, palpitations Gastrointestinal denied any current nausea, vomiting Pulmonary: Denied any shortness of breath cough Neurologic denied any new focal deficits ROS Statement: Those systems with pertinent positive or pertinent negative responses have been documented in the HPI. ROS Other: All systems not noted in ROS Statement are negative. Past Medical History Past Medical History: Thyroid Disorder Additional Past Medical History / Comment(s): back pain. PCOS History of Any Multi-Drug Resistant Organisms: None Reported Past Surgical History: Orthopedic Surgery, Tonsillectomy Additional Past Surgical History / Comment(s): rt knee -ARTHROSCOPIC. EGD Past Anesthesia/Blood Transfusion Reactions: Postoperative Nausea & Vomiting (PONV) Past Psychological History: Anxiety, Depression Smoking Status: Former smoker Past Alcohol Use History: Occasional Additional Past Alcohol Use History / Comment(s): STARTED SMOKING AT AGE 19 QUIT JUNE 2021 SMOKED 1 PACK EVERY 2 WEEKS Past Drug Use History: None Reported Additional Drug Use History / Comment(s): PREVIOUS HISTORY OF USE OF MARIJUANA- DOES NOT USE NOW - Past Family History Mother Family Medical History: No Reported History Medications and Allergies Home Medications Medication Instructions Recorded Confirmed Type Escitalopram [Lexapro] 20 mg PO DAILY 06/24/21 11/23/21 History Levothyroxine Sodium 25 mcg PO DAILY 06/24/21 11/23/21 History metFORMIN HCL 500 mg PO TID 06/24/21 11/23/21 History traZODone HCL 50 mg PO HS 07/24/21 11/23/21 History Allergies Allergy/AdvReac Type Severity Reaction Status Date / Time No Known Allergies Allergy Verified 11/23/21 07:36 Physical Exam Vitals: Vital Signs Temp Pulse Pulse Pulse Resp BP Pulse Ox 11/24/21 08:03 96 11/24/21 08:00 97.7 F 63 18 150/98 97 11/24/21 02:17 98.5 F 57 L 16 158/90 98 11/23/21 20:00 100.1 F H 98 18 146/98 98 11/23/21 19:50 98 18 11/23/21 16:27 62 11/23/21 16:14 64 11/23/21 13:40 97.9 F 63 16 143/86 95 11/23/21 13:10 62 17 140/84 97 11/23/21 12:45 65 16 136/80 96 11/23/21 12:15 70 16 130/71 96 11/23/21 11:45 70 16 129/67 97 11/23/21 11:30 80 16 126/70 96 11/23/21 11:18 77 16 126/68 96 11/23/21 11:03 97.3 F L 81 16 130/73 95 Intake and Output 11/23/21 11/24/21 11/24/21 22:59 06:59 14:59 Intake Total 0 Balance 0 Intake: Oral 0 Other: # Voids 1 1 Weight 164.1 kg PHYSICAL EXAM: VITAL SIGNS: As above GENERAL: Sitting up in bed, no acute distress HEENT: Conjunctivae normal. eyes normal. NECK: No JVD. No thyroid enlargement. No LNs CARDIOVASCULAR: S1, S2 regular.. No murmur RESPIRATION: Breath sounds diminished in the bases. No rhonchi or crackles. No bronchial breathing. ABDOMEN: Soft, tender, status post surgery .hypoactive bowel sounds. LEGS: No edema. no swelling. PSYCHIATRY: Alert and oriented X3, mood and affect normal. NERVOUS SYSTEM: Cranial N 2-12 grossly normal. Moves all 4 limbs. No focal deficits. Strength and sensation grossly intact. Skin: Warm and dry, no rash Results CBC & Chem 7: 11/24/21 06:43 11/24/21 06:43 Assessment and Plan Assessment: Morbid obesity status post laparoscopic sleeve gastrectomy PONV Diabetes mellitus, A1c 7.3 Atelectasis Hypothyroidism Prior nicotine dependence Prior marijuana use Anxiety Depression Chronic back pain Plan: Continue on current medication regime ,monitoring and symptomatic treatment. Antiemetics in place for PONV. Aggressive pulmonary toileting with incentive spirometer reinforced. Insulin sliding scale with close monitoring of Accu-Cheks. Upper GI series pending/diet advancement as per surgery. Pain management as per primary. Lovenox for DVT prophylaxis, PPI for GI prophylaxis in place. Increase ambulation as tolerated. Thank you for the consult. The impression and plan of care has been dictated as directed. : I performed a history and examination of this patient, discussed the same with the dictator. I agree with the dictator's note ,documented as a scribe. Any additional findings or plans will be noted.
[2021-11-24 21:11] LABS: Glucose,Whole Blood 89 mg/dL (70-110)
[2021-11-24] MEDS: traZODone HCL 50 MG TAB PO SCH (21:16)
[2021-11-25] MEDS: 0.9% NACL WITH KCL 20 MEQ/L 1,000 ML IV SCH ×2 (03:35→12:35)
[2021-11-25 04:56] LABS: Glucose,Whole Blood 86 mg/dL (70-110)
[2021-11-25] MEDS: KETOROLAC 15 MG/ML 1 ML VIAL IVP SCH ×3 (06:03→18:00)
[2021-11-25] MEDS: ACETAMINOPHEN IV (For NPO) 1,000 MG in EMPTY BAG 1 BAG IVPB SCH ×2 (06:03→11:23)
[2021-11-25] MEDS: LEVOTHYROXINE 25 MCG TAB PO SCH (06:04)
[2021-11-25 06:45] LABS: Glucose,Whole Blood 91 mg/dL (70-110)
[2021-11-25] MEDS: LACTATED RINGERS 1,000 ML IV SCH (07:09)
[2021-11-25] MEDS: ALBUTEROL NEBULIZED 2.5 MG/3 ML INHALATION SCH ×4 (07:15→20:12)
[2021-11-25] MEDS: INSULIN ASPART (NovoLOG) 100 UNIT/ML VIAL SQ SCH ×4 (07:20→20:40)
[2021-11-25] MEDS ORDERED: bisacodyL 5 MG TABLET.DR PO PRN (08:00)
[2021-11-25] MEDS: ESCITALOPRAM 20 MG TAB PO SCH (09:47)
[2021-11-25] MEDS: PANTOPRAZOLE 40 MG/10 ML VIAL IV SCH (09:47)
[2021-11-25] MEDS: ENOXAPARIN 40 MG/0.4 ML SYRINGE SQ SCH ×2 (09:47→20:44)
[2021-11-25 10:31] LABS: Basophils # (A) 0.06 X 10*3/uL (0.00-0.10); Basophils % (A) 0.5 %; Eosinophils # (A) 0.19 X 10*3/uL (0.04-0.35); Eosinophils % (A) 1.7 %; HCT 38.1 % (37.2-46.3); HGB 12.1 g/dL (12.0-15.0); Immature Grans, Automated 0.5 %; Lymphocytes # (A) 3.61 X 10*3/uL (0.90-5.00); MCH 27.7 pg (27.0-32.0); MCHC 31.8 g/dL (32.0-37.0); MCV 87.2 fL (80.0-97.0); Mean Platelet Volume 9.8 fL (9.5-12.2); Monocytes # (A) 0.69 X 10*3/uL (0.20-1.00); Monocytes % (A) 6.3 %; NRBC Per 100 WBC 0 /100 WBCS (0.0-0.0); Neutrophils # (A) 6.33 X 10*3/uL (1.80-7.70); Platelet Count 383 X 10*3/uL (140-440); RBC 4.37 X 10*6/uL (4.10-5.20); RDW 13.5 % (11.5-14.5); WBC 10.93 X 10*3/uL (4.50-10.00)
[2021-11-25 10:56] LABS: African American GFR (CKD) 134.7 (60.0-200.0); Anion Gap 11.4 mmol/L (10.00-18.00); BUN/Creat Ratio 10.43 Ratio (12.00-20.00); Blood Urea Nitrogen 7.3 mg/dL (9.0-27.0); Calcium 8.8 mg/dL (8.7-10.3); Carbon Dioxide 23.6 mmol/L (20.0-27.5); Non-African American GFR(CKD) 116.3 (60.0-200.0); Potassium 4.9 mmol/L (3.5-5.5)
[2021-11-25 11:47] LABS: Glucose,Whole Blood 89 mg/dL (70-110)
--- NOTE | 2021-11-25 12:36 | P.PN ---
Subjective Progress Note Date: 11/25/21 CHIEF COMPLAINT: Morbid obesity HISTORY OF PRESENT ILLNESS: Patient is postop day #2 status post laparoscopic sleeve gastrectomy. Patient reports that her pain is controlled. She is having flatus. She denies any nausea or vomiting. She has been up and ambulating. She is urinating without difficulty. Patient's liquid intake is on the lower side. She's had a total of 5 ounces this morning and about 12 ounces during the afternoon and evening yesterday. Patient reports that she has been burping with the liquids. Afebrile. WBC is down from 16.84-10.93 hemoglobin 12.1 sodium 138 potassium 4.9 creatinine 0.7 A1c is 7.3 PHYSICAL EXAM: VITAL SIGNS: Reviewed. GENERAL: Well-developed in no acute distress. HEENT: No sclera icterus. Extraocular movements grossly intact. Moist buccal mucosa. Head is atraumatic, normocephalic. ABDOMEN: Soft. Nondistended. Incision sites clean dry and intact NEUROLOGIC: Alert and oriented. Cranial nerves II through XII grossly intact. ASSESSMENT: 1. Morbid obesity status post laparoscopic sleeve gastrectomy PLAN: -Continue bariatric clear liquid diet -Encouraged patient to increase liquid intake with smaller sips over longer period of time -Continue IV fluids -Continue pain medication as needed -Encouraged patient to ambulate -Encouraged patient to use incentive spirometer -DVT prophylaxis Lovenox and GI prophylaxis Protonix Physician Naval Gunfire Liaison Officer note has been reviewed by physician. Signing provider agrees with the documented findings, assessment, and plan of care. Objective - Vital Signs Vital signs: Vital Signs Temp 98.1 F 11/25/21 07:23 Pulse 56 L 11/25/21 10:54 Resp 18 11/25/21 08:00 BP 159/79 11/25/21 07:23 Pulse Ox 95 11/25/21 07:23 FiO2 Intake & Output 11/24/21 11/25/21 11/25/21 18:59 06:59 18:59 Weight 164.1 kg Other: # Voids 1 1 - Labs CBC & Chem 7: 11/25/21 06:30 11/25/21 06:30 Labs: Abnormal Lab Results - Last 24 Hours (Table) 11/24/21 11/25/21 11/25/21 Range/Units 06:43 06:30 06:30 WBC 10.93 H (4.50-10.00) X 10*3/uL MCHC 31.8 L (32.0-37.0) g/dL Immature Gran # 0.05 H (0.00-0.04) X 10*3/uL BUN 7.3 L (9.0-27.0) mg/dL BUN/Creatinine Ratio 10.43 L (12.00-20.00) Ratio Hemoglobin A1c 7.3 H (0.0-6.0) %
--- NOTE | 2021-11-25 15:25 | P.PN ---
Subjective Progress Note Date: 11/25/21 History of Present Illness This is a pleasant 30-year-old female with morbid obesity, BMI 49.1, status post laparoscopic sleeve gastrectomy, tolerating procedure well. Earlier this morning nauseated, receiving Zofran, resolved. Denies passing flatus. Denies sweats, chills, shortness of breath. Denies palpitations. Ambulating, tolerating exertion well. Denies lightheadedness, dizziness or focal deficits. T-max 100.1, WBC 16.8, renal function stable, A1c 7.3. Upper GI series pending. 11/25/2021 postop day #2, ambulating, tolerating exertion well. Pain controlled. Denies nausea vomiting or diarrhea. No bowel movement, passing flatus. Reports burping with bariatic clear liquid diet-low intake. Maintained on gentle IV fluid hydration of 0.9 normal saline. Blood sugars controlled. Afebrile, WBC decreased to 10.93. Hemoglobin 12.1, platelets 383. Renal functi on stable. Potassium 4.9. Maintaining O2 sats in the 90s on room air. Denies chest pain, palpitations or shortness of breath. Objective - Vital Signs Vital signs: Vital Signs Temp 98.1 F 11/25/21 07:23 Pulse 56 L 11/25/21 10:54 Resp 18 11/25/21 08:00 BP 159/79 11/25/21 07:23 Pulse Ox 95 11/25/21 07:23 FiO2 Intake & Output 11/24/21 11/25/21 11/25/21 18:59 06:59 18:59 Intake Total 210 Balance 210 Weight 164.1 kg Intake: Oral 210 Other: # Voids 1 1 - Exam PHYSICAL EXAM: VITAL SIGNS: As above GENERAL: Alert and oriented 3, Sitting up in chair, no acute distress HEENT: Conjunctivae normal. eyes normal.MMM. NECK: Supple, No JVD. CARDIOVASCULAR: S1, S2 regular.. No murmur RESPIRATION: Breath sounds diminished in the bases. ABDOMEN: Soft, nondistended , status post surgery . Positive bowel sounds. LEGS: No edema. no swelling. NERVOUS SYSTEM: Cranial N 2-12 grossly normal. No focal deficits. Skin: Warm and dry, no rash - Labs CBC & Chem 7: 11/25/21 06:30 11/25/21 06:30 Labs: Abnormal Lab Results - Last 24 Hours (Table) 11/24/21 11/25/21 11/25/21 Range/Units 06:43 06:30 06:30 WBC 10.93 H (4.50-10.00) X 10*3/uL MCHC 31.8 L (32.0-37.0) g/dL Immature Gran # 0.05 H (0.00-0.04) X 10*3/uL BUN 7.3 L (9.0-27.0) mg/dL BUN/Creatinine Ratio 10.43 L (12.00-20.00) Ratio Hemoglobin A1c 7.3 H (0.0-6.0) % Assessment and Plan Assessment: Morbid obesity status post laparoscopic sleeve gastrectomy PONV Diabetes mellitus, A1c 7.3 Atelectasis Hypothyroidism Prior nicotine dependence Prior marijuana use Anxiety Depression Chronic back pain Plan: Continue on current medication regime ,monitoring and symptomatic treatment. Potassium slowly creeping up, close monitoring of electrolytes with repeat labs ordered for a.m. maintain gentle IV fluid hydration , bariatric diet as per surgery .Continue aggressive pulmonary toileting with incentive spirome ter reinforced. Increase ambulation as tolerated. The impression and plan of care has been dictated as directed. : I performed a history and examination of this patient, discussed the same with the dictator. I agree with the dictator's note ,documented as a scribe. Any additional findings or plans will be noted.
[2021-11-25] MEDS ORDERED: SODIUM CHLORIDE 0.9% 1,000 ML IV SCH (15:30)
[2021-11-25 17:04] LABS: Glucose,Whole Blood 86 mg/dL (70-110)
[2021-11-25 19:45] LABS: Glucose,Whole Blood 78 mg/dL (70-110)
[2021-11-25] MEDS: traZODone HCL 50 MG TAB PO SCH (20:44)
[2021-11-25] MEDS: HYDROmorphone 1 MG/ML 1 ML SYRINGE IVP PRN (22:35)
[2021-11-26] MEDS: KETOROLAC 15 MG/ML 1 ML VIAL IVP SCH ×3 (01:20→13:36)
[2021-11-26] MEDS: 0.9% NACL WITH KCL 20 MEQ/L 1,000 ML IV SCH ×2 (01:21→13:33)
[2021-11-26] MEDS: LEVOTHYROXINE 25 MCG TAB PO SCH (06:18)
[2021-11-26 07:05] LABS: Glucose,Whole Blood 95 mg/dL (70-110)
[2021-11-26] MEDS: INSULIN ASPART (NovoLOG) 100 UNIT/ML VIAL SQ SCH ×2 (08:25→12:02)
[2021-11-26] MEDS: ALBUTEROL NEBULIZED 2.5 MG/3 ML INHALATION SCH ×2 (08:47→12:54)
[2021-11-26] MEDS: PANTOPRAZOLE 40 MG/10 ML VIAL IV SCH (08:59)
[2021-11-26] MEDS: ESCITALOPRAM 20 MG TAB PO SCH (08:59)
[2021-11-26] MEDS: ENOXAPARIN 40 MG/0.4 ML SYRINGE SQ SCH (08:59)
[2021-11-26 11:14] LABS: African American GFR (CKD) 134.7 (60.0-200.0); BUN/Creat Ratio 8.29 Ratio (12.00-20.00); Blood Urea Nitrogen 5.8 mg/dL (9.0-27.0); Calcium 8.5 mg/dL (8.7-10.3); Non-African American GFR(CKD) 116.3 (60.0-200.0); Potassium 4.6 mmol/L (3.5-5.5)
[2021-11-26 11:36] LABS: Glucose,Whole Blood 81 mg/dL (70-110)
--- NOTE | 2021-11-26 12:05 | P.DS ---
Providers Date of admission: 11/26/21 09:24 Expected date of discharge: 11/26/21 Attending physician: Kwame Garrido Consults: 11/23/21 10:59 Consult Physician Routine Consulting Provider: Tre Fenton Consult Reason/Comments: Medical management Do you want consulting provider notified?: Yes Primary care physician: Tre Fenton MD Hospital Course: Discharge diagnosis 1. Morbid obesity status post laparoscopic sleeve gastrectomy Hospital course This is a 30-year-old female with a known history of morbid obesity. She is status post laparoscopic sleeve gastrectomy. She tolerated surgery well. Her upper GI shows no evidence of leak or obstruction. She is tolerating diet. She has been up and ambulating. She is having flatus. She's afebrile. She is stable for discharge. Please refer to chart for any further details. Physician Paraprofessional Education Assistant note has been reviewed by physician. Signing provider agrees with the documented findings, assessment, and plan of care. Patient Condition at Discharge: Stable Plan - Discharge Summary Discharge Rx Participant: Yes New Discharge Prescriptions: New Ondansetron Odt [Zofran Odt] 4 mg PO Q8HR PRN #9 tab PRN Reason: Nausea bisacodyL [Dulcolax] 5 mg PO DAILY PRN #10 tab PRN Reason: Constipation Simethicone 40 mg/0.6 ml Drops [Mylicon Drops] 40 mg PO PCHS PRN #30 ml PRN Reason: Gas Omeprazole [PriLOSEC] 40 mg PO DAILY #30 cap Acetaminophen Tab [Tylenol] 1,000 mg PO Q6HR PRN #30 tablet PRN Reason: Pain Continue Escitalopram [Lexapro] 20 mg PO DAILY Levothyroxine Sodium 25 mcg PO DAILY traZODone HCL 50 mg PO HS Discontinued metFORMIN HCL 500 mg PO TID Discharge Medication List Escitalopram [Lexapro] 20 mg PO DAILY 06/24/21 [History] Levothyroxine Sodium 25 mcg PO DAILY 06/24/21 [History] traZODone HCL 50 mg PO HS 07/24/21 [History] Acetaminophen Tab [Tylenol] 1,000 mg PO Q6HR PRN #30 tablet 11/26/21 [Rx] Omeprazole [PriLOSEC] 40 mg PO DAILY #30 cap 11/26/21 [Rx] Ondansetron Odt [Zofran Odt] 4 mg PO Q8HR PRN #9 tab 11/26/21 [Rx] Simethicone 40 mg/0.6 ml Drops [Mylicon Drops] 40 mg PO PCHS PRN #30 ml 11/26/21 [Rx] bisacodyL [Dulcolax] 5 mg PO DAILY PRN #10 tab 11/26/21 [Rx] Follow up Appointment(s)/Referral(s): [facility] [NON-STAFF] - 11/27/21 Kwame Garrido MD [Medical Doctor] - 12/01/21 Activity/Diet/Wound Care/Special Instructions: No lifting over 10 pounds You may shower. No soaking or tub baths for 2 weeks Very light activity until you are reevaluated at your follow up appointment with your surgeon No straws or carbonated beverages Discharge Disposition: HOME SELF-CARE
--- NOTE | 2021-11-26 12:32 | P.PN ---
Subjective Progress Note Date: 11/26/21 History of Present Illness This is a pleasant 30-year-old female with morbid obesity, BMI 49.1, status post laparoscopic sleeve gastrectomy, tolerating procedure well. Earlier this morning nauseated, receiving Zofran, resolved. Denies passing flatus. Denies sweats, chills, shortness of breath. Denies palpitations. Ambulating, tolerating exertion well. Denies lightheadedness, dizziness or focal deficits. T-max 100.1, WBC 16.8, renal function stable, A1c 7.3. Upper GI series pending. 11/25/2021 postop day #2, ambulating, tolerating exertion well. Pain controlled. Denies nausea vomiting or diarrhea. No bowel movement, passing flatus. Reports burping with bariatic clear liquid diet-low intake. Maintained on gentle IV fluid hydration of 0.9 normal saline. Blood sugars controlled. Afebrile, WBC decreased to 10.93. Hemoglobin 12.1, platelets 383. Renal functi on stable. Potassium 4.9. Maintaining O2 sats in the 90s on room air. Denies chest pain, palpitations or shortness of breath. 11/26/21 tolerating diet, denies nausea or vomiting. Reports no bowel movement, passing flatus. Ambulating, tolerating exertion well. Afebrile, T-max 99.2. Objective - Vital Signs Vital signs: Vital Signs Temp 98.1 F 11/26/21 07:30 Pulse 64 11/26/21 08:57 Resp 16 11/26/21 07:30 BP 132/92 11/26/21 07:30 Pulse Ox 94 L 11/26/21 07:30 FiO2 Intake & Output 11/25/21 11/26/21 11/26/21 18:59 06:59 18:59 Intake Total 1450 Balance 1450 Intake: Oral 1450 Other: # Voids 2 2 - Exam PHYSICAL EXAM: VITAL SIGNS: As above GENERAL: Alert and oriented 3, Sitting up in chair, no acute distress HEENT: Conjunctivae normal. eyes normal.MMM. NECK: Supple, No JVD. CARDIOVASCULAR: S1, S2 regular. No murmur RESPIRATION: Breath sounds diminished in the bases. ABDOMEN: Soft, nondistended , status post surgery . Wearing an abdominal binder. Positive bowel sounds. LEGS: No edema. no swelling. NERVOUS SYSTEM: Cranial N 2-12 grossly normal. No focal deficits. Skin: Warm and dry, no rash - Labs CBC & Chem 7: 11/25/21 06:30 11/26/21 06:14 Labs: Abnormal Lab Results - Last 24 Hours (Table) 11/26/21 Range/Units 06:14 BUN 5.8 L (9.0-27.0) mg/dL BUN/Creatinine Ratio 8.29 L (12.00-20.00) Ratio Calcium 8.5 L (8.7-10.3) mg/dL Assessment and Plan Assessment: Morbid obesity status post laparoscopic sleeve gastrectomy PONV Diabetes mellitus, A1c 7.3 Atelectasis Hypothyroidism Prior nicotine dependence Prior marijuana use Anxiety Depression Chronic back pain Plan: Continue on current medication regime ,monitoring and symptomatic treatment. Significant clinical improvement. Discharge planning in progress as per primary .patient has been advised to maintain aggressive pulmonary toileting with incentive spirometer. Follow-up with PCP in 1 week. The impression and plan of care has been dictated as directed. : I performed a history and examination of this patient, discussed the same with the dictator. I agree with the dictator's note ,documented as a scribe. Any additional findings or plans will be noted.
[2021-11-26 14:02] VITALS: BP 154/77; PULSE 74; RESP 17; TEMP 97.8
== END 2021-11-26 14:55 | disposition home or self-care (01) ==
LOC: OR 07:04 → 4SSUR 10:54 → OR 11-24 03:42 → 4SSUR 11-24 03:54 → OBSVTOIN 11-26 09:24 → INTOOBSV 11-26 09:24 → UNDODISIN 11-26 14:55
PROVIDERS: ADMIT Surgery; ATTEND Surgery
DX: E66.01 Morbid (severe) obesity due to excess calories (principal); K29.50 Unspecified chronic gastritis without bleeding; E28.2 Polycystic ovarian syndrome; F32.A Depression, unspecified; M25.569 Pain in unspecified knee; G89.29 Other chronic pain; R12 Heartburn; E03.9 Hypothyroidism, unspecified; E11.9 Type 2 diabetes mellitus without complications; F41.9 Anxiety disorder, unspecified; J98.11 Atelectasis; Z87.891 Personal history of nicotine dependence; Z79.899 Other long term (current) drug therapy; Z68.43 Body mass index [BMI] 50.0-59.9, adult; Z79.84 Long term (current) use of oral hypoglycemic drugs
CPT/HCPCS: 43775; S2900; 74240; 80048; 80051; 81025; 82310; 82565; 83036; 83735; 84100; 84520; 85025; 86850; 86900; 86901; 88307; 94640; 94760; 96365; 96366; 96372; 96375; 96376

== ENCOUNTER → 2021-11-27 | Outpatient (CLI) | payer BC ==
[2021-11-27 11:48] VITALS: BP 137/73; PULSE 78; TEMP 98.4; BMI 47.9
== END ==
LOC: BARWHC3 10:37
PROVIDERS: ATTEND Surgery
DX: Z09 Encounter for follow-up examination after completed treatment for conditions other than malignant neoplasm (principal); Z98.84 Bariatric surgery status; F17.200 Nicotine dependence, unspecified, uncomplicated
CPT/HCPCS: 99211

== ENCOUNTER → 2021-12-01 | Outpatient (CLI) | payer BC ==
[2021-12-01 15:43] VITALS: BP 166/89; PULSE 94; RESP 16; TEMP 98.6; BMI 46.9
--- NOTE | 2021-12-01 16:12 | P.BASOAP ---
Subjective Progress Note Date: 12/01/21 Principal diagnosis: Morbid obesity Patient doing well after sleeve gastrectomy last week. She is doing well with her liquid and protein intake. Minimal pain. She does have some burning discomfort on the far right flank that last for 1-2 minutes at a time a few times daily. She does not recall having pain like this in the past. No fevers. No heartburn. Objective - Vital Signs Vital signs: Vital Signs Temp 98.6 F 12/01/21 15:40 Pulse 94 12/01/21 15:40 Resp 16 12/01/21 15:40 BP 166/89 12/01/21 15:40 Pulse Ox FiO2 Intake & Output 11/30/21 12/01/21 12/01/21 18:59 06:59 18:59 Weight 156.943 kg - Exam Abdomen: Soft, nondistended, incisions clean and dry Assessment/Plan (1) Morbid obesity with BMI of 50.0-59.9, adult Narrative/Plan: Patient doing well after recent sleeve gastrectomy. Continue dietary and exercise regimen. Return visit to 3 weeks. We'll check one month labs at that time. Monitor incision sites. Plan: Date: 12/01/21 Initial Weight: 166.468 kg Initial BMI: 49.7 Current Weight: 156.943 kg Current BMI: 46.9 Type of Surgery: Vertical Sleeve Gastrectomy Total Volume in Band: Previous Volume: Volume Removed: Volume Added: Band Size:
== END ==
LOC: BARWHC3 14:51
PROVIDERS: ATTEND Surgery
DX: Z98.84 Bariatric surgery status (principal); E66.01 Morbid (severe) obesity due to excess calories; Z68.42 Body mass index [BMI] 45.0-49.9, adult
CPT/HCPCS: 97802; 99211

== ENCOUNTER → 2021-12-15 | Outpatient (CLI) | payer BC ==
[2021-12-15 12:33] VITALS: BP 138/93; PULSE 70; RESP 16; TEMP 98.3; BMI 45.7
--- NOTE | 2021-12-15 12:38 | P.BASOAP ---
Subjective Progress Note Date: 12/15/21 Principal diagnosis: Morbid obesity Patient returns for recheck. She was last seen 12/01. The pain she was having in the right flank has now gone but shifted to her extraction incision site. Only mild intermittent pain when bending over. No fevers. Only had one episode of reflux. She is doing well with her protein and liquid intake. She has lost 9 pounds. Objective - Vital Signs Vital signs: Vital Signs Temp 98.3 F 12/15/21 12:30 Pulse 70 12/15/21 12:30 Resp 16 12/15/21 12:30 BP 138/93 12/15/21 12:30 Pulse Ox FiO2 Intake & Output 12/14/21 12/15/21 12/15/21 18:59 06:59 18:59 Weight 152.861 kg - Exam Abdomen: Soft, nondistended, incisions clean and dry, mild tenderness at extraction site Assessment/Plan (1) Morbid obesity with BMI of 50.0-59.9, adult Narrative/Plan: Patient doing well at this time. Continue dietary and exercise regimen. We'll see dietitian today. We'll check one month labs. Follow-up in 1. Plan: Date: 12/15/21 Initial Weight: 166.468 kg Initial BMI: 49.7 Current Weight: 152.861 kg Current BMI: 45.7 Type of Surgery: Vertical Sleeve Gastrectomy Total Volume in Band: Previous Volume: Volume Removed: Volume Added: Band Size:
== END ==
LOC: BARWHC3 12:21
PROVIDERS: ATTEND Surgery
DX: Z09 Encounter for follow-up examination after completed treatment for conditions other than malignant neoplasm (principal); E66.01 Morbid (severe) obesity due to excess calories; Z68.42 Body mass index [BMI] 45.0-49.9, adult
CPT/HCPCS: 97803; 99211

== ENCOUNTER → 2022-03-02 | Outpatient (CLI) | payer BC ==
[2022-03-02 15:57] VITALS: BP 133/88; PULSE 92; RESP 16; TEMP 98.3; BMI 40.0
--- NOTE | 2022-03-02 15:57 | P.BASOAP ---
Subjective Progress Note Date: 03/02/22 Principal diagnosis: Morbid obesity Patient returns for reevaluation. She was last seen in December. States she had her labs drawn in January. There is no results on our computer system however. She has lost 42 pounds since her last visit. No GERD symptoms. No vomiting. Currently has a ear and a sinus infection and is on amoxicillin. Objective - Vital Signs Vital signs: Vital Signs Temp 98.3 F 03/02/22 15:49 Pulse 92 03/02/22 15:49 Resp 16 03/02/22 15:49 BP 133/88 03/02/22 15:49 Pulse Ox FiO2 Intake & Output 03/01/22 03/02/22 03/02/22 18:59 06:59 18:59 Weight 133.81 kg - Exam Abdomen: Soft, nontender, nondistended Assessment/Plan (1) Morbid obesity with BMI of 50.0-59.9, adult Narrative/Plan: 31-year-old female doing well after previously gastrectomy. We'll contact her doctor's office to see if they have the recent labs. Continue exercise and dietary regimen. Patient no longer taking her antiacids. Instructed her to keep them for as needed purposes. Recheck 4-6 weeks. Likely we will repeat lab work none. Plan: Date: 03/02/22 Initial Weight: 166.468 kg Initial BMI: 49.7 Current Weight: 133.81 kg Current BMI: 40.0 Type of Surgery: Vertical Sleeve Gastrectomy Total Volume in Band: Previous Volume: Volume Removed: Volume Added: Band Size:
== END ==
LOC: BARWHC3 15:22
PROVIDERS: ATTEND Surgery
DX: E66.01 Morbid (severe) obesity due to excess calories (principal); Z68.41 Body mass index [BMI] 40.0-44.9, adult
CPT/HCPCS: 99211

== ENCOUNTER → 2023-03-22 | Outpatient (CLI) | payer BC ==
--- NOTE | 2023-03-22 15:51 | P.BASOAP ---
Subjective Progress Note Date: 03/22/23 Principal diagnosis: Morbid obesity Patient returns for recheck. 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 She says she did have some blood work in the fall with her primary care physician because she was having some leg numbness. That has improved. She's not sure what the labs showed. She has lost 60+ pounds since her last visit April of last year. Only has reflux when eating close to bedtime. Taking antiacids on an as-needed basis. No vomiting. No pain. Patient states she is dealing with lots of loose skin and some rash at her skin folds. Objective - Exam Abdomen: Soft, nontender, nondistended Assessment/Plan (1) Morbid obesity with BMI of 50.0-59.9, adult Narrative/Plan: Patient doing well at this time. She has done very well with her weight loss overall. She has done somewhat poorly with her follow-up and her follow-up lab work. We'll order routine lab work at this time. Continue dietary and exercise regimen. Recheck 6 months. Plan: Date: Initial Weight: 166.468 kg Initial BMI: Current Weight: Current BMI: Type of Surgery: Total Volume in Band: Previous Volume: Volume Removed: Volume Added: Band Size:
[2023-03-22 16:08] VITALS: BP 134/84; PULSE 80; RESP 16; TEMP 98; BMI 28.3
[2023-03-22 18:45] LABS: HCT 38.3 % (37.2-46.3); HGB 12.8 g/dL (12.0-15.0); MCH 30.8 pg (27.0-32.0); MCHC 33.4 g/dL (32.0-37.0); MCV 92.1 FL (80.0-97.0); Mean Platelet Volume 9.4 FL (9.5-12.2); NRBC Per 100 WBC 0 X 10*3/uL (0.00-0.01); Platelet Count 348 X 10*3/uL (140-440); RBC 4.16 X 10*6/uL (4.10-5.20); RDW 12.5 % (11.5-14.5); WBC 9.68 X 10*3/uL (4.50-10.00)
[2023-03-22 19:04] LABS: % Iron Saturation 32.12 (12.00-45.00); ALT 9 U/L (8-44); AST 8 U/L (13-35); Albumin 4.4 g/dL (3.8-4.9); Albumin/Globulin Ratio 1.76 Ratio (1.60-3.17); Alkaline Phosphatase 47 U/L (41-126); BUN/Creat Ratio 13.25 Ratio (12.00-20.00); Blood Urea Nitrogen 10.6 mg/dL (9.0-27.0); Calcium 9.6 mg/dL (8.7-10.3); Carbon Dioxide 23.8 mmol/L (21.6-31.8); Chloride 104 mmol/L (96-109); Globulin 2.5 g/dL (1.6-3.3); Glucose 83 mg/dL (70-110); Iron 106 UG/DL (50-170); Potassium 4.1 mmol/L (3.5-5.5); Sodium 139 mmol/L (135-145); Total Bilirubin 0.3 mg/dL (0.3-1.2); Total Iron Binding Capacity 330 UG/DL (228-460); Total Protein 6.9 g/dL (6.2-8.2)
== END ==
LOC: BARWHC3 15:27
PROVIDERS: ATTEND Surgery
DX: E66.01 Morbid (severe) obesity due to excess calories (principal); Z68.43 Body mass index [BMI] 50.0-59.9, adult; Z98.84 Bariatric surgery status
CPT/HCPCS: 80053; 82306; 82607; 82746; 83540; 83550; 84425; 85027; 99211

== ENCOUNTER 2023-12-11 21:35 | Emergency (ER) | payer BC ==
[2023-12-11 21:39] VITALS: TEMP 98.6
[2023-12-11 22:23] LABS: Basophils # (A) 0.1 k/uL (0-0.2); Basophils % (A) 1 %; Eosinophils # (A) 0.1 k/uL (0-0.7); Eosinophils % (A) 1 %; HCT 39.5 % (34.0-46.0); HGB 13.1 gm/dL (11.4-16.0); Lymphocytes # (A) 3.7 k/uL (1.0-4.8); Lymphocytes % (A) 43 %; MCH 30.5 pg (25.0-35.0); MCHC 33.2 g/dL (31.0-37.0); MCV 91.8 fL (80.0-100.0); Mean Platelet Volume 6.9; Monocytes # (A) 0.3 k/uL (0-1.0); Monocytes % (A) 4 %; Neutrophils # (A) 4.2 k/uL (1.3-7.7); Neutrophils % (A) 48 %; Platelet Count 398 k/uL (150-450); RDW 11.9 % (11.5-15.5); WBC 8.6 k/uL (3.8-10.6)
[2023-12-11 22:24] LABS: Appearance,Urine Clear (Clear); Bilirubin,Urine Negative (Negative); Blood,Urine Negative (Negative); Color,Urine Yellow; Glucose,Urine (UA) Negative (Negative); Ketones,Urine 2+ (Negative); Leukocyte Esterase,Urine Negative (Negative); Nitrite,Urine Negative (Negative); Protein,Urine Trace (Negative); Specific Gravity,Urine 1.034 (1.001-1.035)
[2023-12-11 22:36] LABS: ALT 14 U/L (4-34); AST 19 U/L (14-36); African American GFR (CKD) >90 (>60 ml/min/1.73 sqM); Albumin 4.5 g/dL (3.5-5.0); Alkaline Phosphatase 37 U/L (38-126); Anion Gap 10 mmol/L; Blood Urea Nitrogen 11 mg/dL (7-17); Calcium 9.2 mg/dL (8.4-10.2); Carbon Dioxide 23 mmol/L (22-30); Chloride 107 mmol/L (98-107); Glucose 83 mg/dL (74-99); Lipase 59 U/L (23-300); Non-African American GFR(CKD) >90 (>60 ml/min/1.73 sqM); Potassium 3.8 mmol/L (3.5-5.1); Sodium 140 mmol/L (137-145); Total Bilirubin 0.7 mg/dL (0.2-1.3); Total Protein 7.5 g/dL (6.3-8.2)
[2023-12-11] MEDS: KETOROLAC 15 MG/ML 1 ML VIAL IVP STA (22:39)
--- NOTE | 2023-12-11 23:12 | ED ---
Abdominal Pain HPI - General Chief Complaint: Abdominal Pain Stated Complaint: Pelvic Pain Time Seen by Provider: 12/11/23 21:40 Source: patient Mode of arrival: ambulatory Limitations: no limitations - History of Present Illness Initial Comments: 32-year-old female who presents to the emergency department reporting pelvic pain. Reports that the pain started on Tuesday and has been intermittent. Admits that the pain is mostly on the left side. Denies urinary complaints to include dysuria, hematuria or difficulty voiding. Denies vaginal discharge. Has had some vaginal bleeding which is abnormal. This is the time for the patient to be on her menstrual cycle however states her menstrual cycles are very regular. She is sexually active and monogamous and denies concern for sexually transmitted infections. Denies diarrhea, constipation, black or bloody stools. No fevers. No other alleviating, precipitating or modifying factors - Related Data Home Medications Medication Instructions Recorded Confirmed Escitalopram [Lexapro] 20 mg PO DAILY 06/24/21 03/23/23 Levothyroxine Sodium 25 mcg PO DAILY 06/24/21 03/23/23 traZODone HCL 50 mg PO HS 07/24/21 03/23/23 Ergocalciferol [Vitamin D2 (1250 50,000 unit PO WEEKLY 03/25/23 03/25/23 Mcg = 99086 Iu)] Folic Acid 800 mcg PO DAILY 03/25/23 03/25/23 Vitamin B Complex 1 tab PO DAILY 03/25/23 03/25/23 Previous Rx's Medication Instructions Recorded Omeprazole [PriLOSEC] 40 mg PO DAILY #30 cap 11/26/21 Allergies Allergy/AdvReac Type Severity Reaction Status Date / Time No Known Allergies Allergy Verified 12/11/23 21:39 Review of Systems ROS Statement: Those systems with pertinent positive or pertinent negative responses have been documented in the HPI. ROS Other: All systems not noted in ROS Statement are negative. Past Medical History Past Medical History: No Reported History, Thyroid Disorder Additional Past Medical History / Comment(s): back pain. PCOS History of Any Multi-Drug Resistant Organisms: None Reported Past Surgical History: Bariatric Surgery, Orthopedic Surgery, Tonsillectomy Additional Past Surgical History / Comment(s): rt knee -ARTHROSCOPIC. Sleeve gastrectomy 11-23-21 Past Anesthesia/Blood Transfusion Reactions: Postoperative Nausea & Vomiting (PONV) Past Psychological History: Anxiety, Depression Smoking Status: Current some day smoker Past Alcohol Use History: Occasional Past Drug Use History: None Reported - Past Family History Mother Family Medical History: No Reported History General Exam Limitations: no limitations General appearance: alert, in no apparent distress Head exam: Present: atraumatic, normocephalic, normal inspection Eye exam: Present: normal appearance, PERRL, EOMI. Absent: scleral icterus, conjunctival injection, periorbital swelling ENT exam: Present: normal exam, mucous membranes moist Neck exam: Present: normal inspection. Absent: tenderness, meningismus, lymphadenopathy Respiratory exam: Present: normal lung sounds bilaterally. Absent: respiratory distress, wheezes, rales, rhonchi, stridor Cardiovascular Exam: Present: regular rate, normal rhythm, normal heart sounds. Absent: systolic murmur, diastolic murmur, rubs, gallop, clicks GI/Abdominal exam: Present: soft, tenderness (Left lower quadrant), normal bowel sounds. Absent: distended, guarding, rebound, rigid Extremities exam: Present: normal inspection, full ROM, normal capillary refill. Absent: tenderness, pedal edema, joint swelling, calf tenderness Back exam: Present: normal inspection Neurological exam: Present: alert, oriented X3, CN II-XII intact Psychiatric exam: Present: normal affect, normal mood Skin exam: Present: warm, dry, intact, normal color. Absent: rash Course Vital Signs 12/11/23 12/12/23 21:36 00:36 Temperature 98.6 F Pulse Rate 82 86 Respiratory 16 18 Rate Blood Pressure 126/83 121/71 O2 Sat by Pulse 100 99 Oximetry Medical Decision Making - Medical Decision Making Was pt. sent in by a medical professional or institution (, PA, CONTRACTING ENGINEER, urgent care, hospital, or detention...) When possible be specific @ -No Did you speak to anyone other than the patient for history (EMS, parent, family, police, friend...)? What history was obtained from this source @ -No Did you review nursing and triage notes (agree or disagree)? Why? @ -I reviewed and agree with nursing and triage notes Were old charts reviewed (outside hosp., previous admission, EMS record, old EKG, old radiological studies, urgent care reports/EKG's, detention records)? Report findings @ -No old charts were reviewed Differential Diagnosis (chest pain, altered mental status, abdominal pain women, abdominal pain men, vaginal bleeding, weakness, fever, dyspnea, syncope, headache, dizziness, GI bleed, back pain, seizure, CVA, palpatations, mental health, musculoskeletal)? @ -Differential Abdominal Pain Women: Appendicitis, Cholecystitis, diverticulosis, ischemic bowel, pancreatitis, hepatitis, UTI, gastroenteritis, AAA, incarcerated hernia, bowel obstruction, constipation, inflammatory bowel, hepatitis, peptic ulcer disease, splenic infarction, perforated viscus, vulvitis, ovarian torsion, PID, kidney stone, placenta abruption, this is not meant to be an all-inclusive list EKG interpreted by me (3pts min.). @ -Not done X-rays interpreted by me (1pt min.). @ -None done CT interpreted by me (1pt min.). @ -None done U/S interpreted by me (1pt. min.). @ -Yes and demonstrates no acute process What testing was considered but not performed or refused? (CT, X-rays, U/S, labs)? Why? @ -None What meds were considered but not given or refused? Why? @ -None Did you discuss the management of the patient with other professionals (professionals i.e. , PA, CONTRACTING ENGINEER, lab, RT, psych nurse, director of social work, inspector and adjuster golf club head, teacher, radio division officer, rn case mgr)? Give summary @ -No Was smoking cessation discussed for >3mins.? @ -No Was critical care preformed (if so, how long)? @ -No Were there social determinants of health that impacted care today? How? (Homelessness, low income, unemployed, alcoholism, drug addiction, tr ansportation, low edu. Level, literacy, decrease access to med. care, [facility], rehab)? @ -No Was there de-escalation of care discussed even if they declined (Discuss DNR or withdrawal of care, Hospice)? DNR status @ -No What co-morbidities impacted this encounter? (DM, HTN, Smoking, COPD, CAD, Cancer, CVA, ARF, Chemo, Hep., AIDS, mental health diagnosis, sleep apnea, morbid obesity)? @ -None Was patient admitted / discharged? Hospital course, mention meds given and route, prescriptions, significant lab abnormalities, going to OR and other pertinent info. @ -Upon arrival patient seen and evaluated in bed 22. Thorough history and physical exam was performed. IV access was established. Laboratory studies are conducted. Ultrasound was performed which is unremarkable. Patient does have some improvement in her pain. I did discuss the diagnosis, differential treatment options. Patient stable for discharge at this time. Requested she follow-up with her surgeon and DATA CONVERSION OPERATOR for further management of her symptoms. Return for any new or worsening symptoms. Patient agreeable plan was discharged in stable condition Undiagnosed new problem with uncertain prognosis? @ -Yes Drug Therapy requiring intensive monitoring for toxicity (Heparin, Nitro, Insulin, Cardizem)? @ -No Were any procedures done? @ -No Diagnosis/symptom? @ -Acute low left sided pelvic pain Acute, or Chronic, or Acute on Chronic? @ -Acute Uncomplicated (without systemic symptoms) or Complicated (systemic symptoms)? @ -Complicated Side effects of treatment? @ -No Exacerbation, Progression, or Severe Exacerbation? @ -No Poses a threat to life or bodily function? How? (Chest pain, USA, [place], pneumonia, PE, COPD, DKA, ARF, appy, cholecystitis, CVA, Diverticulitis, Homicidal, Suicidal, threat to staff... and all critical care pts) @ -No - Lab Data Result diagrams: 12/11/23 22:15 12/11/23 22:15 Lab Results 12/11/23 12/11/23 12/11/23 Range/Units 22:15 22:15 22:15 WBC 8.6 (3.8-10.6) k/uL RBC 4.30 (3.80-5.40) m/uL Hgb 13.1 (11.4-16.0) gm/dL Hct 39.5 (34.0-46.0) % MCV 91.8 (80.0-100.0) fL MCH 30.5 (25.0-35.0) pg MCHC 33.2 (31.0-37.0) g/dL RDW 11.9 (11.5-15.5) % Plt Count 398 (150-450) k/uL MPV 6.9 Neutrophils % 48 % Lymphocytes % 43 % Monocytes % 4 % Eosinophils % 1 % Basophils % 1 % Neutrophils # 4.2 (1.3-7.7) k/uL Lymphocytes # 3.7 (1.0-4.8) k/uL Monocytes # 0.3 (0-1.0) k/uL Eosinophils # 0.1 (0-0.7) k/uL Basophils # 0.1 (0-0.2) k/uL Sodium 140 (137-145) mmol/L Potassium 3.8 (3.5-5.1) mmol/L Chloride 107 (98-107) mmol/L Carbon Dioxide 23 (22-30) mmol/L Anion Gap 10 mmol/L BUN 11 (7-17) mg/dL Creatinine 0.60 (0.52-1.04) mg/dL Est GFR (CKD-EPI)AfAm >90 (>60 ml/min/1.73 sqM) Est GFR (CKD-EPI)NonAf >90 (>60 ml/min/1.73 sqM) Glucose 83 (74-99) mg/dL Calcium 9.2 (8.4-10.2) mg/dL Total Bilirubin 0.7 (0.2-1.3) mg/dL AST 19 (14-36) U/L ALT 14 (4-34) U/L Alkaline Phosphatase 37 L (38-126) U/L Total Protein 7.5 (6.3-8.2) g/dL Albumin 4.5 (3.5-5.0) g/dL Lipase 59 (23-300) U/L Urine Color Yellow Urine Appearance Clear (Clear) Urine pH 6.0 (5.0-8.0) Ur Specific [place] 1.034 (1.001-1.035) Urine Protein Trace H (Negative) Urine Glucose (UA) Negative (Negative) Urine Ketones 2+ H (Negative) Urine Blood Negative (Negative) Urine Nitrite Negative (Negative) Urine Bilirubin Negative (Negative) Urine Urobilinogen 2.0 (<2.0) mg/dL Ur Leukocyte Esterase Negative (Negative) Urine HCG, Qual (Not Detectd) 12/11/23 Range/Units 22:16 WBC (3.8-10.6) k/uL RBC (3.80-5.40) m/uL Hgb (11.4-16.0) gm/dL Hct (34.0-46.0) % MCV (80.0-100.0) fL MCH (25.0-35.0) pg MCHC (31.0-37.0) g/dL RDW (11.5-15.5) % Plt Count (150-450) k/uL MPV Neutrophils % % Lymphocytes % % Monocytes % % Eosinophils % % Basophils % % Neutrophils # (1.3-7.7) k/uL Lymphocytes # (1.0-4.8) k/uL Monocytes # (0-1.0) k/uL Eosinophils # (0-0.7) k/uL Basophils # (0-0.2) k/uL Sodium (137-145) mmol/L Potassium (3.5-5.1) mmol/L Chloride (98-107) mmol/L Carbon Dioxide (22-30) mmol/L Anion Gap mmol/L BUN (7-17) mg/dL Creatinine (0.52-1.04) mg/dL Est GFR (CKD-EPI)AfAm (>60 ml/min/1.73 sqM) Est GFR (CKD-EPI)NonAf (>60 ml/min/1.73 sqM) Glucose (74-99) mg/dL Calcium (8.4-10.2) mg/dL Total Bilirubin (0.2-1.3) mg/dL AST (14-36) U/L ALT (4-34) U/L Alkaline Phosphatase (38-126) U/L Total Protein (6.3-8.2) g/dL Albumin (3.5-5.0) g/dL Lipase (23-300) U/L Urine Color Urine Appearance (Clear) Urine pH (5.0-8.0) Ur Specific [place] (1.001-1.035) Urine Protein (Negative) Urine Glucose (UA) (Negative) Urine Ketones (Negative) Urine Blood (Negative) Urine Nitrite (Negative) Urine Bilirubin (Negative) Urine Urobilinogen (<2.0) mg/dL Ur Leukocyte Esterase (Negative) Urine HCG, Qual Not Detected (Not Detectd) Disposition Clinical Impression: Pelvic pain Disposition: HOME SELF-CARE Condition: Stable Instructions (If sedation given, give patient instructions): Pelvic Pain in Women (ED) Additional Instructions: Please follow-up with your primary care doctor at your scheduled appointment in the morning. Your ultrasound was normal and showed good blood flow to your ovaries. They may consider further testing to include a scope or possibly a CT scan. Return to the emergency department if you have any new or worsening symptoms Is patient prescribed a controlled substance at d/c from ED?: No Referrals: Tre Fenton MD [Primary Care Provider] - 1-2 days Time of Disposition: 00:29
--- NOTE | 2023-12-12 00:15 | US ---
EXAM: US Pelvis Transvaginal CLINICAL HISTORY: ITS.REASON US Reason: llq pain, heavy vag bleeding TECHNIQUE: Real-time transvaginal pelvic ultrasound with image documentation. Transvaginal imaging was used for better evaluation of the endometrium and adnexa. COMPARISON: No previous studies. FINDINGS: Uterus/cervix: The uterus measures 6.3 x 3.0 x 5.1 cm. Endometrial stripe measures 0.6 cm. No myometrial mass. Right ovary: Right ovary measures 3.0 x 4.2 x 4.4 cm. Good flow to both ovaries. Normal blood flow. Left ovary: Left ovary measures 3.5 x 2.1 x 3.7 cm. Free fluid: No free fluid within the posterior cul-de-sac. Bladder: Empty bladder which cannot be evaluated with this probe. IMPRESSION: 1. Flow to both ovaries noted. 2. Unremarkable imaging of the visualized pelvic viscera.
[2023-12-12 00:37] VITALS: BP 121/71; PULSE 86; RESP 18
== END 2023-12-12 00:42 | disposition home or self-care (01) ==
LOC: EC 21:35
CPT/HCPCS: 36415; 76830; 80053; 81003; 81025; 83690; 85025; 93975; 96374; 99284

== ENCOUNTER → 2024-08-26 | Outpatient (CLI) | payer BC ==
--- NOTE | 2024-08-31 11:48 | MR ---
EXAMINATION TYPE: MR knee RT wo con DATE OF EXAM: 08/26/2024 8:30 PM COMPARISON: 08/17/2024. CLINICAL INDICATION: Female, 33 years old with history of M25.561; PHH, Right knee pain and locking s joselin April due to her dogs twisting her around, history of surgery. TECHNIQUE: Multi planar, multi sequence imaging was performed of the knee including: Triplane proton density fat-saturated images and T1-weighted imaging. No Gadolinium was given. IV Contrast: mL (none if empty) FINDINGS: Medial meniscus: Intact Medial femorotibial cartilage: Intact Medial collateral ligament: Intact Lateral meniscus: Intact Lateral femorotibial cartilage: Intact Lateral collateral ligament complex: Intact Patellofemoral alignment: Normal Patellofemoral cartilage: Deep fissuring of the patella cartilage most pronounced in the lateral facet with areas of subchondral bony edema. Extensor mechanism: Intact. Joint/bursal fluid: None. Muscles/tendons: The patellar tendon, quadriceps tendon, IT band, pes anserinus tendons, semimembrano judi tendon, popliteus tendon, and biceps femoris tendon are all within normal limits. Bone marrow: Normal. Anterior cruciate ligament: Intact. Posterior cruciate ligament: Intact. Soft tissues: Unremarkable. IMPRESSION: 1. No definitive evidence to suggest meniscal tear nor ligamentous injury. 2. Scattered areas of cartilage loss and thinning with subchondral bony edema involving the lateral patellar facet moderate to severe severity for patient's age. [facility], , 08/31/2024 11:46 AM
== END | disposition home or self-care (01) ==
LOC: RADMRIMAIN 20:30
PROVIDERS: ATTEND Orthopaedic Surgery
DX: R60.9 Edema, unspecified (principal)